=== PATIENT | female | born 1940 | race Caucasian/White ===

== ENCOUNTER 2018-02-15 07:08 | Day surgery (SDC) | payer MEDICARE, OTHER ==
[~2018-02-15 07:08] MED LIST: Acetaminophen TAB* 325 MG PO PRN; Buffered Lidocaine 0.9% SYRIN* 5 ML/SYR SYRINGE INTRADERM ONE
[2018-02-15] MEDS ORDERED: Phenylephrine 2.5% OPTH.SOL* 2 ML BTL ONE (07:43)
[2018-02-15] MEDS ORDERED: Ketorolac 0.5% OPHTH (NF) 0.5 % 5 ML BTL ONE (07:43)
[2018-02-15] MEDS ORDERED: Povidone Iodine 5% OPTH* 30 ML BTL ONE (07:43)
[2018-02-15] MEDS ORDERED: Lidocaine 2% EPI 1:200000 MPF*10-20 ML VIAL ONE (07:43)
[2018-02-15] MEDS ORDERED: Cyclopentolate 1% OPTH.SOL* 2 ML BTL ONE (07:43)
[2018-02-15] MEDS ORDERED: Neomycin/Polymy/Dex OPTH.SUSP* MAXITROL 0.1% 5 ML ONE (07:43)
[2018-02-15] MEDS ORDERED: Lidocaine 1% MPF* 2 ML VIAL ONE (07:43)
[2018-02-15] MEDS ORDERED: acetaZOLAMIDE TAB* 250 MG ONE (07:43)
[2018-02-15] MEDS ORDERED: Proparacaine 0.5% OPHTH.SOL* 15 ML BTL ONE (07:43)
[2018-02-15] MEDS ORDERED: Midazolam* 1 MG/ML 2 ML VIAL (2 MG) ONE ×2 (07:57→09:29)
[2018-02-15] MEDS ORDERED: fentaNYL* 50 MCG/ML 2 ML VIAL (100 MCG VIAL) ONE (09:16)
[2018-02-15 09:56] VITALS: BP 127/71
--- NOTE | 2018-02-15 11:19 | OP ---
OPERATIVE REPORT: DATE OF OPERATION: 02/15/18 DATE OF : 36 SURGEON: Steve Coffey MD PREOPERATIVE DIAGNOSIS: Cataract, right eye. POSTOPERATIVE DIAGNOSIS: Cataract, right eye. OPERATIVE PROCEDURE: Extracapsular cataract extraction with intraocular lens implant, right eye. DESCRIPTION OF PROCEDURE: The patient was brought to the operating room after being given 1/2% Alcai ne with epinephrine drops in the preoperative area. The eye was prepped and draped in the usual ster ile fashion. Sterile drape and eyelid speculum were placed. Again, topical 1/2% Alcaine with epinep hrine was given. A paracentesis incision was made at the 9 o'clock position with the No.75 blade. Cl ear cornea incision 2.2 x 2.2-mm was created at the 12 o'clock position starting at the anterior limb us using the 2.2-mm keratome. The anterior chamber was irrigated with 0.4 mL of 1% non-preservative intracameral lidocaine and filled with DisCoVisc. A capsulorrhexis was completed using the cystotome and the Utrata forceps. Hydrodissection was performed with balanced salt solution. The lens nucleu s was removed with the Phacoemulsification handpiece without incident. Cortex was removed with the ir rigation-aspiration handpiece. The capsular bag was re-inflated using DisCoVisc and an [id number] 23.5 i mplant was inserted with the shooter. The irrigation-aspiration handpiece was used to remove all res idual DisCoVisc. The eye was refilled with balanced salt solution and the wound checked and found to be watertight. Topical Maxitrol drops were given. [id number]/[facility] #: [id number]
== END 2018-02-15 09:57 | disposition home or self-care (01) ==
LOC: OREAST 07:08
PROVIDERS: ATTEND Specialist
DX: H25.13 Age-related nuclear cataract, bilateral (principal); I10 Essential (primary) hypertension; E78.00 Pure hypercholesterolemia, unspecified
CPT/HCPCS: A9270-GY; J2250; J3010; V2632

== ENCOUNTER 2018-02-22 07:44 | Day surgery (SDC) | payer MEDICARE, OTHER ==
[2018-02-22] MEDS ORDERED: acetaZOLAMIDE TAB* 250 MG ONE (09:25)
[2018-02-22] MEDS ORDERED: Cyclopentolate 1% OPTH.SOL* 2 ML BTL ONE (09:25)
[2018-02-22] MEDS ORDERED: Proparacaine 0.5% OPHTH.SOL* 15 ML BTL ONE (09:25)
[2018-02-22] MEDS ORDERED: Povidone Iodine 5% OPTH* 30 ML BTL ONE (09:25)
[2018-02-22] MEDS ORDERED: Ketorolac 0.5% OPHTH (NF) 0.5 % 5 ML BTL ONE (09:25)
[2018-02-22] MEDS ORDERED: Lidocaine 1% MPF* 2 ML VIAL ONE (09:25)
[2018-02-22] MEDS ORDERED: Lidocaine 2% EPI 1:200000 MPF*10-20 ML VIAL ONE (09:25)
[2018-02-22] MEDS ORDERED: Phenylephrine 2.5% OPTH.SOL* 2 ML BTL ONE (09:25)
[2018-02-22] MEDS ORDERED: Neomycin/Polymy/Dex OPTH.SUSP* MAXITROL 0.1% 5 ML ONE (09:25)
[2018-02-22] MEDS ORDERED: Midazolam* 1 MG/ML 2 ML VIAL (2 MG) ONE ×2 (09:38→09:52)
[2018-02-22] MEDS ORDERED: fentaNYL* 50 MCG/ML 2 ML VIAL (100 MCG VIAL) ONE (09:46)
[2018-02-22 10:24] VITALS: BP 122/86
--- NOTE | 2018-02-22 13:31 | OP ---
DATE OF OPERATION: 02/22/18 - [facility] DATE OF : 36 SURGEON: Steve Coffey M.D. PREOPERATIVE DIAGNOSIS: Cataract, left eye. POSTOPERATIVE DIAGNOSIS: Cataract, left eye. OPERATIVE PROCEDURE: Extracapsular cataract extraction with intraocular lens implant, left eye. DESCRIPTION OF PROCEDURE: The patient was brought to the operating room after being given 1/2% Alcaine with epinephrine drops in the preoperative area. The eye was prepped and draped in the usual sterile fashion. Sterile drape and eyelid speculum were placed. Again, topical 1/2% Alcaine with epinephrine was given. A paracentesis incision was made at the 3 o'clock position with the No.75 blade. Clear cornea incision 2.2 x 2.2-mm was created at the 6 o'clock position starting at the anterior limbus using the 2.2-mm keratome. The anterior chamber was irrigated with 0.4 mL of 1% non-preservative intracameral lidocaine and filled with DisCoVisc. A capsulorrhexis was completed using the cystotome and the Utrata forceps. Hydrodissection was performed with balanced salt solution. The lens nucleus was removed with the Phacoemulsification handpiece without incident. Cortex was removed with the irrigation-aspiration handpiece. The capsular bag was re-inflated using DisCoVisc and an [id number] 22 implant was inserted with the shooter. The irrigation-aspiration handpiece was used to remove all residual DisCoVisc. The eye was refilled with balanced salt solution and the wound checked and found to be watertight. Topical Maxitrol drops were given. [id number]/[facility] #: [id number] [facility]
== END 2018-02-22 10:22 | disposition home or self-care (01) ==
LOC: OREAST 07:44
PROVIDERS: ATTEND Specialist
DX: H25.12 Age-related nuclear cataract, left eye (principal); E78.5 Hyperlipidemia, unspecified; I10 Essential (primary) hypertension; M19.90 Unspecified osteoarthritis, unspecified site; R56.9 Unspecified convulsions
CPT/HCPCS: A9270-GY; J2250; J3010; V2632

== ENCOUNTER 2019-04-21 19:58 | Inpatient (IN) | payer MEDICARE ==
--- OUTSIDE RECORDS SUMMARY | 2019-04-21 20:08 | XMS REPORT | Continuity of Care Document ---
:1940 External Reference #:[id number] Author Name Ashley Jones O.D. Address [address] [place] [address] Care Team Providers Name Role Phone Reed Santos M.D. Primary Care Physician Unavailable Payers Date Identification Numbers Payment Provider Subscriber Policy Number: [id number] [facility] Denia Leung PayID: [id number] [address] [place] [id number] Problems Active Problems Provider Date Seizure Onset: Note: 2009 11 Episode Essential hypertension Onset: Hypercholesterolemia Onset: Bilateral hearing loss Onset: Presence of intraocular lens Steve Coffey M.D. Onset: 02/23/2018 Nuclear senile cataract Steve Coffey M.D. 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 Solution Simvastatin Take 1 Tablet By Unknown 20mg Tablets Mouth AT Bedtime Lisinopril Take 1 Tablet By Unknown 10mg Tablets Mouth Every Day Levetiracetam Excel, Michael, 1000mg M.DAdeline Tablets Multi Vitamin Daily Unknown Tablets History Medications Ciprofloxacin HCL instill one drop 10units Steve Mcfarland 02/10/2018 - 0.3% in the right eye Denzel Coffey 03/08/2018 Solution three times a day, start the day before surgery Ketorolac Tromethamine use one drop in 10ml Steve Mcfarland 02/10/2018 - 0.5% the right eye Denzel Coffey 04/03/2019 Solution three times a day, start the day before surgery Prednisolone Acetate 1 drops right eye 15units Steve Mcfarland 02/10/2018 - 1% three times a day. Denzel Coffey 04/03/2019 Suspension taper as directed Procedures Date Code Description Status 02/22/2018 13518 Extracapsular Cataract Extraction W/Intraocular Lens Completed 02/15/2018 67170 Extracapsular Cataract Extraction W/Intraocular Lens Completed 02/10/2018 67359 Ophthalmic Biometry Completed 01/31/2018 05604 New Patient Comprehensive Exam Completed Encounters Type Date Location Provider Dx Diagnosis Office Visit 02/10/2018 Steve Coffey, Steve Coffey, H25.11 Age- related 10:45a , leo Mahoney nuclear cataract, right eye H25.12 Age-related nuclear cataract, left eye Plan of Treatment 04/04/2019 - Ashley Jones O.D.Z96.1 Presence of intraocular lensComments: Smoking can increase the risk of developing or worsening any eye related disease , as well as affect your overall health. If you are a smoker, we strongly recommend that you quit.If you are not a smoker, we strongly recommend that you do not start. The artificial lens implants in both eyes appear to be stable at this time.Follow up:2 YEAR You can expect to have your eyes dilated at your next visit. If Dr. Jones orders any additional testing, it may require extra time. We recommend that you bring sunglasses, as dilation drops often make you light sensitive until they wear off. We always recommend you bring someone to drive you home if you are uncomfortable driving with your eyes dilated. If you have any questions before your next visit, feel free to call our office at [phone].
[2019-04-21 22:12] LABS: ABS Basophils 0.1 10^3/ul (0-0.2); ABS Lymphocytes 0.7 10^3/ul (1.0-4.8); ABS Monocytes 0.9 10^3/ul (0-0.8); ABS Neutrophils 11.3 10^3/ul (1.5-7.7); Eosinophil % 0.1 %; Hematocrit 41 % (35-47); Hemoglobin 13.6 g/dL (12.0-16.0); Lymphocyte % 5.8 %; Mean Corpuscular HGB Conc 33 g/dL (31-36); Mean Corpuscular Hemoglobin 29 pg (27-31); Mean Corpuscular Volume 87 fL (80-97); Mean Platelet Volume 8.7 fL (7.4-10.4); Platelet Count 235 10^3/uL (150-450); Red Blood Count 4.71 10^6 /uL (3.70-4.87); Red Cell Distribution Width 13 % (10-15)
[2019-04-21 22:21] LABS: Activated Partial Thrombo Time 34.5 seconds (26.0-38.0); INR 1.03 (0.82-1.09)
--- NOTE | 2019-04-21 22:22 | ED ---
Lower Extremity - HPI Summary HPI Summary: 79-year-old female presents the left hip pain s/p fall today. She states that she ended up tripping over her flip flops and fell onto her left hip. She states that she was walking for an hour afterwards and hasn't place weight on the area. She denies any numbness distally. Denies chest pain shortness breath. All was mechanical fall. She did not hit her head. Denies any other symptoms. Has history of seizures and high blood pressure. Patient states she is in no pain until place weight on the area. - History of Current Complaint Chief Complaint: EDExtremityLower Stated Complaint: LEFT LEG PAIN PER PT Time Seen by Provider: 04/21/19 21:09 Pain Intensity: 5 - Allergies/Home Medications Allergies/Adverse Reactions: Allergies Allergy/AdvReac Type Severity Reaction Status Date / Time No Known Allergies Allergy Verified 02/22/18 07:57 PMH/Surg Hx/FS Hx/Imm Hx Endocrine/Hematology History: Denies: Hx Anticoagulant Therapy Cardiovascular History: Reports: Hx Hypertension - ON MEDS, Other Cardiovascular Problems/Disorders - HIGH CHOLESTEROL Musculoskeletal History: Reports: Hx Arthritis - FINGERS HANDS Sensory History: Reports: Hx Cataracts - BOTH, Hx Contacts or Glasses - GLASSES , Hx Hearing Aid - LEFT EAR Opthamlomology History: Reports: Hx Cataracts - BOTH, Hx Contacts or Glasses - GLASSES Neurological History: Reports: Hx Seizures - LAST SEIZURE 2009 - Cancer History Hx Chemotherapy: No - Surgical History Surgery Procedure, Year, and Place: CRANIOTOMY 2009 [facility] Hx Anesthesia Reactions: No Infectious Disease History: No Infectious Disease History: Denies: Traveled Outside the [place] in Last 30 Days - Family History Known Family History: Positive: Non-Contributory - Social History Alcohol Use: None Substance Use Type: Reports: None Smoking Status (MU): Never Smoked Tobacco Review of Systems Negative: Fever Negative: Chest Pain Negative: Shortness Of Breath Positive: Myalgia - left hip pain All Other Systems Reviewed And Are Negative: Yes Physical Exam Triage Information Reviewed: Yes Vital Signs On Initial Exam: Initial Vitals Temp Pulse Resp BP Pulse Ox 98.3 F 121 18 135/97 95 04/21/19 20:00 04/21/19 20:00 04/21/19 20:00 04/21/19 20:00 04/21/19 20:00 Vital Signs Reviewed: Yes Appearance: Positive: Well-Appearing Skin: Positive: Warm, Dry Head/Face: Positive: Normal Head/Face Inspection Eyes: Positive: Normal, Conjunctiva Clear ENT: Positive: Pharynx normal Respiratory/Lung Sounds: Positive: Clear to Auscultation, Breath Sounds Present Cardiovascular: Positive: Normal, RRR Musculoskeletal: Positive: Limited @ - left hip, Other - good pulses, sensation grossly intact Neurological: Positive: Sensory/Motor Intact, Alert, Oriented to Person Place, Time Psychiatric: Positive: Normal Diagnostics - Vital Signs Vital Signs Temp Pulse Resp BP Pulse Ox 04/21/19 21:10 115 162/98 94 04/21/19 21:08 111 04/21/19 21:07 115 04/21/19 20:00 98.3 F 121 18 135/97 95 - Laboratory Lab Results: Lab Results 04/21/19 04/21/19 Range/Units 22:05 22:05 WBC 13.0 H (3.5-10.8) 10^3/uL RBC 4.71 (3.70-4.87) 10^6 /uL Hgb 13.6 (12.0-16.0) g/dL Hct 41 (35-47) % MCV 87 (80-97) fL MCH 29 (27-31) pg MCHC 33 (31-36) g/dL RDW 13 (10-15) % Plt Count 235 (150-450) 10^3/uL MPV 8.7 (7.4-10.4) fL Neut % (Auto) 86.8 % Lymph % (Auto) 5.8 % [place] % (Auto) 6.8 % Eos % (Auto) 0.1 % Baso % (Auto) 0.5 % Absolute Neuts (auto) 11.3 H (1.5-7.7) 10^3/ul Absolute Lymphs (auto) 0.7 L (1.0-4.8) 10^3/ul Absolute Monos (auto) 0.9 H (0-0.8) 10^3/ul Absolute Eos (auto) 0.0 (0-0.6) 10^3/ul Absolute Basos (auto) 0.1 (0-0.2) 10^3/ul Absolute Nucleated RBC 0.0 10^3/ul Nucleated RBC % 0.0 INR (Anticoag Therapy) 1.03 (0.82-1.09) APTT 34.5 (26.0-38.0) seconds Result Diagrams: 04/21/19 22:05 04/21/19 22:05 Lab Statement: Any lab studies that have been ordered have been reviewed, and results considered in the medical decision making process. - Radiology hip Radiology Interpretation Completed By: ED Physician Summary of Radiographic Findings: possible femoral neck fracture femur Radiology Interpretation Completed By: ED Physician Summary of Radiographic Findings: no fracture - CT hip CT Interpretation Completed By: Radiologist Summary of CT Findings: IMPRESSION: Impacted left subcapital femoral neck fracture with mild soft tissue swelling. On sagittal images, there is cortical break in the inferior sacrum without any. associated soft tissue swelling. Likely old. - EKG No standard instances Cardiac Rate: Tachycardia EKG Rhythm: Sinus Tachycardia Summary of EKG Findings: sinus tachycardic Re-Evaluation - Re-Evaluation First Eval Re-Evaluation Time: 23:37 Comment: still no pain Lower Extremity Course/Dx - Course Course Of Treatment: 79-year-old female presents the left hip pain s/p fall today. She states that she ended up tripping over her flip flops and fell onto her left hip. She states that she was walking for an hour afterwards and hasn' t place weight on the area. She denies any numbness distally. Denies chest pain shortness breath. All was mechanical fall. She did not hit her head. Denies any other symptoms. Has history of seizures and high blood pressure. Patient states she is in no pain until places weight on the area. On exam tachycardic. EKG shows sinus tachycardia. Patient does have limited range of motion of the left hip. Unable to lift the hip on own but passive range of motion intact. Neurovascular intact. X-ray shows possible femoral neck fracture. spoke with dr morales who says to admit to hospitalist service for possible surgery tomorrow. dr mark agrees to admit. - Diagnoses Differential Diagnosis/HQI/PQRI: Positive: Fracture (Closed), Sprain, Strain Provider Diagnoses: Fracture of femoral neck, left, Fall Discharge - Sign-Out/Discharge Documenting (check all that apply): Patient Departure - Discharge Plan Condition: Stable Disposition: ADMITTED TO [facility] - Billing Disposition and Condition Condition: STABLE Disposition: Admitted to [facility]
[2019-04-21 22:28] LABS: Albumin 4.5 g/dL (3.2-5.2); Albumin/Globulin Ratio 1.5 (1-3); BUN/Creatinine Ratio 14.7 (8-20); Calcium 9.9 mg/dL (8.6-10.3); EGFR African American 54.3 (>60); EGFR Non-African American 44.8 (>60); Globulin 3.1 g/dL (2-4); Potassium 3.7 mmol/L (3.5-5.0); Total Bilirubin 0.5 mg/dL (0.2-1.0); Total Protein 7.6 g/dL (6.4-8.9)
[2019-04-21] MEDS ORDERED: NS 0.9% 1000 ML** 1,000 ML IV ONE (23:30)
[2019-04-21] MEDS ORDERED: Ondansetron INJ* 2 MG/ML VIAL IV PRN (23:40)
[2019-04-22] MEDS: traMADol TAB* 50 MG PO PRN (00:49)
[2019-04-22] MEDS ORDERED: Morphine INJ* 2 MG/ML 1 ML SYRINGE (TWO MG - NEW SYRINGE VERSION) IV PRN ×2 (01:45→02:19)
[2019-04-22] MEDS ORDERED: Morphine INJ* 2 MG/ML 1 ML SYRINGE (TWO MG - NEW SYRINGE VERSION) ONE ×3 (01:58→03:03)
--- NOTE | 2019-04-22 02:08 | HP ---
HISTORY AND PHYSICAL: DATE OF ADMISSION: 04/21/19 PRIMARY CARE PROVIDER: Dr. Santos. GAS METER CHECKER: Alex Leung, the patient's daughter. CODE STATUS: DNR. SOURCE OF INFORMATION: HPI is obtained from the patient, who is an excellent historian. CHIEF COMPLAINT: Fall and leg pain. HISTORY OF PRESENT ILLNESS: This is an 79-year-old female with a past medical history of hypertension, hyperlipidemia, and arthritis, history of seizure disorder after an aneursym clipping, on antiepileptic drugs, last seizure was in 2009, who reports to the ER tonight after a trip and fall with left leg pain. The patient reports she was cleaning out the cat litter box in her flip flops and tripped on her own left foot, fell onto her left hip directly. She had immediate pain in the area, and when she tried to stand, she was unable to bear weight, thus she called EMS. In the emergency room, her blood pressure was 135/97, heart rate was 121, temperature 98.3, 95% on room air with respiratory rate of 15. Labs were done, which show mild leukocytosis to 13, creatinine of 1.16, glucose is mildly elevated at 139. EKG was done showing sinus tachycardia with low voltage. Hip radiograph, femur radiograph, and a pelvic CT were done, which showed an impacted left subcapital femoral neck fracture. Orthopedic service was called, who requested that the patient be admitted for possible operative repair on . PAST MEDICAL HISTORY: Hypertension, hyperlipidemia, arthritis, history of seizure disorder in setting of aneursym. PAST SURGICAL HISTORY: Cranial aneurysm clipping in [address] [facility]. MEDICATIONS: 1. Keppra 1000 mg p.o. b.i.d. 2. Multivitamin 1 tab p.o. daily. 3. Lisinopril 10 mg p.o. q.a.m. 4. Simvastatin 20 mg p.o. q.h.s. ALLERGIES: None. FAMILY HISTORY: Mother with coronary artery disease and father with coronary artery disease. 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 Tobacco: She is a lifetime nonsmoker. Alcohol: She is a distant social drinker. Illicits: Never. REVIEW OF SYSTEMS: Constitutional: Negative for fevers, chills. HEENT: Negative for vision changes, headaches, sore throat. Cardiovascular: Negative for chest pain, palpitations, or orthopnea. Respiratory: Negative for shortness of breath, cough, or chest pain. GI: Negative for nausea, vomiting, diarrhea, abdominal pain. : Negative for dysuria or hematuria. Musculoskeletal: Negative for myalgias, arthralgias, or weakness. Positive for left hip pain. Skin: Negative for rashes or lesions. Neurologic: Negative for focal weakness or numbness. Psychiatric: Negative for depression, positive for anxiety. Heme: Negative for bruising, bleeding, or lymphadenopathy. PHYSICAL EXAMINATION GENERAL APPEARANCE: She is a pleasant, well-appearing woman looking younger than stated age, sitting in stretcher, quite anxious. VITAL SIGNS: At time of physical exam, blood pressure 158/108, heart rate 111, respiratory rate 15, oxygen saturation 98% on room air. HEENT: Pupils are equal and reactive. Extraocular muscles are intact. Sclerae are anicteric. Mouth: She has moist mucous membranes. NECK: Supple with no supraclavicular or cervical lymphadenopathy. CARDIAC: She is S1, S2. No murmurs, rubs, or gallops. Tachycardic. RESPIRATORY: Lungs are clear to auscultation bilaterally. ABDOMEN: Belly is soft, nontender, nondistended. NEUROLOGIC: Cranial nerves II through XII are intact. No focal neurologic deficits. A and O x3. EXTREMITIES: No edema. Left leg with sensation intact, 2+ pulses. DIAGNOSTIC STUDIES/LAB DATA: White blood cell count 13, hemoglobin 13, hematocrit 41, platelets 235. Chemistry: Sodium 137, potassium 3.7, chloride 102, carbon dioxide 23, anion gap 12. BUN 17, creatinine 1.16, glucose 139, lactic acid 1.3, total bili is 0.5, AST 28, ALT 20, alk phos 62. Hip, pelvis x-ray and femur x-ray are unreported at time of dictation. A pelvis CT is read as a left subcapital femoral neck fracture, impacted with soft tissue swelling. EKG shows sinus tachycardia with low voltage. Imaging, labs, and EKG reviewed by myself. ASSESSMENT AND PLAN: This is an 79-year-old female with past medical history of hypertension, hyperlipidemia, arthritis, history of aneurysm clipping and subsequent seizure disorder on antiepileptic drugs, who presents to the ER with left femoral neck fracture. She will be admitted to the medicine service with Ortho consulting. 1. Left hip fracture. Admit per Ortho, anticoagulation per Ortho, pain control with Tylenol, tramadol, and morphine as needed. The patient will be placed n.p.o. at midnight. Risk Stratification: At baseline patient can easily complete 4 Mets of activity , RCRI score of 0 connoting a 3.9% risk of cardiac event. Risk and benefits are conveyed with patient and she would elect to proceed with surgery as she is deemed a low risk patient for a moderate risk procedure. No preoperative changes to medications. 2. Sinus tachycardia. Most likely underlying source is significant anxiety amnd pain as the patient reports that she does not want to be admitted to the hospital . We will offer gentle hydration and follow on telemetry, she has no concerning underlying cardiac history. 3. Hypertension. Continue home lisinopril. 4. Hyperlipidemia. Continue home statin. 5. History of seizure disorder. We will continue on her home Keppra. 6. DVT prophylaxis. As per Ortho and we will hold on prophylaxis at this time given possible to OR within the next 24 hours. 7. Code status. DNR. 8. FEN: NPO. 9. Disposition. Stable for admission to the surgical short-stay unit with PT and OT following and Orthopedics following. TIME SPENT: Thirty five minutes was spent in the planning this admission with over half of that spent directly at the bedside with the patient providing direct patient care. Plan of care was discussed with the patient and her son, who agreed to admission. They had no further questions. [id number]/[facility] #: [id number] [place]
[2019-04-22] MEDS: NS 0.9% 1000 ML** 1,000 ML IV SCH ×2 (03:08→12:22)
[2019-04-22 03:09] LABS: Urine Appearance Cloudy; Urine Bacteria 3+ (Absent); Urine Bilirubin Negative (Negative); Urine Blood 1+ (Negative); Urine Color Yellow; Urine Glucose Negative (Negative); Urine Ketones Negative (Negative); Urine Nitrite Positive (Negative); Urine Protein Negative (Negative); Urine Red Blood Cell Trace(0-2/hpf) (Absent); Urine Specific Gravity 1.012 (1.010-1.030); Urine Urobilinogen Negative (Negative); Urine White Blood Cell 3+(>20/hpf) (Absent)
[2019-04-22] MEDS: Melatonin 3 MG TAB PO SCH ×2 (03:33→22:00)
[2019-04-22] MEDS: levETIRAcetam TAB* 500 MG PO SCH ×2 (08:10→21:59)
--- NOTE | 2019-04-22 08:23 | PN ---
Progress Note - Progress Note Date of Service: 04/22/19 Note: Pt seen and examined. Full note dictated. 79 yo independent female s/p GLF with L hip min displaced femoral neck fracture. Optimized per medicine. Called daughter, Anuel, and left a message. Plan for L hip cannulated screws this AM. OR aware. NPO.
--- NOTE | 2019-04-22 08:46 | PN ---
Subjective Date of Service: 04/22/19 Interval History: Ms. Leung is feeling well today. She feels generally comfortable. Has used morphine and ice and left hip pain is currently 4/10. She does not feel like she needs more medication at this time. Denies CP, SOB, N/V/D, headache, dizziness. No concerns from nursing. Family History: Unchanged from Admission Social History: Unchanged from Admission Past Medical History: Unchanged from Admission Objective Active Medications: Acetaminophen (Tylenol Tab*) 650 mg PO Q4H PRN FEVER/PAIN Atorvastatin Calcium (Lipitor*) 10 mg PO BEDTIME ANJALI Sodium Chloride (Ns 0.9% 1000 Ml) 1,000 mls @ 100 mls/hr IV PER RATE ANJALI Levetiracetam (Keppra Tab*) 1,000 mg PO BID ANJALI Melatonin (Melatonin) 3 mg PO BEDTIME ANJALI Morphine Sulfate (Morphine Inj (Syringe))*) 2 mg IV Q2H PRN PAIN Morphine Sulfate (Morphine Inj (Syringe))*) 2 mg IV ONCE PRN PAIN Ondansetron HCl (Zofran Inj*) 4 mg IV Q6H PRN NAUSEA Tramadol HCl (Ultram*) 50 mg PO Q8H PRN PAIN Vital Signs - 8 hr 04/22/19 04/22/19 04/22/19 00:49 00:57 02:05 Temperature 98 F Pulse Rate 110 Respiratory 18 22 16 Rate Blood Pressure 169/93 (mmHg) O2 Sat by Pulse 99 Oximetry 04/22/19 04/22/19 04/22/19 03:00 03:08 03:23 Temperature 99.3 F Pulse Rate 107 Respiratory 16 18 16 Rate Blood Pressure 147/76 (mmHg) O2 Sat by Pulse 94 Oximetry 04/22/19 04/22/19 07:23 07:35 Temperature 99.1 F Pulse Rate 106 Respiratory 16 16 Rate Blood Pressure 147/70 (mmHg) O2 Sat by Pulse 91 Oximetry Oxygen Devices in Use Now: None Appearance: Elderly female laying in bed in NAD Eyes: No Scleral Icterus Ears/Nose/Mouth/Throat: Mucous Membranes Moist Neck: NL Appearance and Movements; NL JVP, Trachea Midline Respiratory: Symmetrical Chest Expansion and Respiratory Effort, Clear to Auscultation Cardiovascular: NL Sounds; No Murmurs; No JVD, RRR Abdominal: NL Sounds; No Tenderness; No Distention Extremities: No Edema Skin: No Rash or Ulcers Neurological: Alert and Oriented x 3, NL Sensation Lines/Tubes/Other Access: Clean, Dry and Intact Peripheral IV Result Diagrams: 04/21/19 22:05 04/21/19 22:05 Assess/Plan/Problems-Billing Assessment: Ms. 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 - Patient Problems (1) Fracture of femoral neck, left Code(s): S72.002A - FRACTURE OF UNSP PART OF NECK OF LEFT FEMUR, INIT Comment : - Secondary to mechanical fall - Management per Ortho; plan for surgery today - Araujo in place - Continue morphine, Tramadol (2) LILI (acute kidney injury) Code(s): N17.9 - ACUTE KIDNEY FAILURE, UNSPECIFIED Comment: - Creatinine elevated on admission - Most recent labs on file are from 2010, so baseline is not known and this could simply represent CKD or secondary to hypovolemia - Hold lisinopril - Continue IVF (3) Hypertension Code(s): I10 - ESSENTIAL (PRIMARY) HYPERTENSION Comment: - Slightly hypertensive, SBP 140s - Hold lisinopril d/t LILI - Will reassess tomorrow, but may resume lisinopril or change to another agent such as a CCB (4) Hyperlipidemia Code(s): E78.5 - HYPERLIPIDEMIA, UNSPECIFIED Comment: - Continue atorvastatin (5) Seizure disorder Code(s): G40.909 - EPILEPSY, UNSP, NOT INTRACTABLE, WITHOUT STATUS EPILEPTICUS Comment: - Secondary to aneurysm, s/p clipping in 2009 - Continue Keppra (6) DVT prophylaxis Code(s): Z29.9 - ENCOUNTER FOR PROPHYLACTIC MEASURES, UNSPECIFIED Comment: - SCDs (7) DNR (do not resuscitate) Comment: Status and Disposition: Inpatient. Anticipate need for rehab. Attending: Jailene Brandon
[2019-04-22] MEDS ORDERED: Famotidine IV* 10 MG/ML 2 ML (20 mg) IV SLOW PU ONE (08:56)
[2019-04-22] MEDS ORDERED: Lactated Ringers 1000 ML Bag* 1,000 ML IV ONE (08:56)
[2019-04-22] MEDS ORDERED: Lisinopril TAB* 10 MG PO SCH (09:00)
--- NOTE | 2019-04-22 10:07 | CONS ---
CC: PCP, Reed Santos MD * CONSULTATION REPORT: DATE OF CONSULT: 04/21/19 CHIEF COMPLAINT: Left hip pain. HISTORY OF PRESENT ILLNESS: Briefly, Ms. Leung is an 79-year-old female with a past medical history of hypertension, hyperlipidemia who presents after a ground level fall last night, she tripped; she states that she was cleaning out her cat litter box and flip flops and slipped and fell on to her hip. She had immediate pain. She was actually able to walk a little bit before she noticed she had a lot of pain and went to the ER, was diagnosed with a nondisplaced valgus impacted femoral neck fracture. She was worked up by Medicine and is n.p.o. waiting for surgery. PAST MEDICAL HISTORY: 1. Hypertension. 2. Hyperlipidemia. 3. Arthritis. 4. History of seizure. PAST SURGICAL HISTORY: Two craniotomies. No issues with anesthesia. No history of blood clots. MEDICATIONS: 1. Keppra. 2. Multivitamin. 3. Lisinopril. 4. Simvastatin. ALLERGIES: None. FAMILY HISTORY: Coronary artery disease. SOCIAL HISTORY: She lives next door to her children. 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 She lives at home. She does not use a cane or a walker. She lost her several years ago and is a . She is a nonsmoker, but used to have an alcohol addiction problem. REVIEW OF SYSTEMS: A 14-point review of systems reviewed with the patient, significant only for the above complaint, otherwise negative for fevers, chills , chest pain, shortness of breath. No seizure since 2009. Otherwise, remainder of systems is negative. PHYSICAL EXAM: She is in no acute distress. She is well developed, well nourished. She is alert and oriented x3. She looks younger than her stated age. She is lying comfortably in bed reading a book. Vitals: Temp of 99.1, heart rate 106, respiratory rate 16, O2 saturation 91%, blood pressure 147/70. EOMI. Chest: Clear to auscultation. Heart: Regular rate and rhythm. Abdomen : Soft, nontender. Examination of the left hip demonstrates skin is intact. No erythema or warmth. Her calf is soft, nontender. She is sensate to light touch about the first dorsal web space, medial, lateral, dorsal, and plantar foot. She has brisk cap refill and 2+ PT pulse. She is able to dorsiflex and plantar flex her ankles, flex and extend her toes. DIAGNOSTIC STUDIES: X-rays were reviewed that demonstrate a valgus impacted femoral neck fracture. Femur films were also reviewed that demonstrated no fracture distally. ASSESSMENT AND PLAN: This is an 79-year-old female who is very active, lives at home without any real assistive devices. She presents with a ground-level fall that happened late last night. We will plan for left hip cannulated screws. She has been optimized by medicine team. I discussed the case with anesthesiologist as well as the medicine team. Risks and benefits were discussed at length to include but not limited to bleeding, infection, damage to nerves, vessels, and surrounding structures, wound nonhealing, persistent pain, need for surgery, scarring, stiffness, incomplete relief of symptoms, risk of anesthesia, risk of DVT. She will be on DVT prophylaxis. The patient did Lovenox shots for her and would prefer not to do that. So, we will discuss about different options. We will plan to take the patient to the OR today and have her up and working with therapy later today if possible. [id number]/[facility] #: [id number] [place]
[2019-04-22] MEDS ORDERED: Ropivacaine 0.2% * 2 MG/ML VIAL ONE (10:26)
[2019-04-22] MEDS ORDERED: Naloxone* 0.4 MG/ML 1 ML VIAL IV PRN (11:22)
[2019-04-22] MEDS ORDERED: Acetaminophen TAB* 325 MG PO PRN (11:22)
[2019-04-22] MEDS ORDERED: HYDROmorphone INJ1* 1 MG/ML SYRINGE IV PRN (11:22)
[2019-04-22] MEDS ORDERED: Gabapentin CAP(*) 100 MG PO ONE (11:24)
[2019-04-22] MEDS ORDERED: Acetaminophen TAB* 325 MG ONE (11:42)
[2019-04-22] MEDS ORDERED: Gabapentin CAP(*) 100 MG ONE (11:43)
--- NOTE | 2019-04-22 12:26 | OP ---
DATE OF OPERATION: 04/22/19 - ROOM #333 DATE OF : 36 SURGEON: Jim Heck MD. SUCTION OPERATOR: None available. ANESTHESIOLOGIST: Dr. Sanford. ANESTHESIA: General. PRE-OP DIAGNOSIS: Minimally displaced femoral neck fracture. POST-OP DIAGNOSIS: Minimally displaced femoral neck fracture. OPERATIVE PROCEDURE: Left hip cannulated screws. COMPLICATIONS: None. ESTIMATED BLOOD LOSS: About 100. DISPOSITION: Stable. INDICATIONS: Denia Leung is an 79-year-old female who sustained a ground level fall last evening. She was brought to the ER and diagnosed with a hip fracture. She underwent a medical risk optimization, was n.p.o. for surgery today. The risks and benefits of surgery were discussed at length including, but not limited to bleeding; infection; damage to nerves, vessels, surrounding structures; wound nonhealing; persistent pain; need for further surgery; scarring; stiffness; incomplete relief of symptoms; risks of anesthesia; risk of DVT. She elected to proceed with surgical treatment. DESCRIPTION OF PROCEDURE: The patient was greeted in the preoperative area by the attending surgeon. Correct extremity was marked and consent was confirmed. The patient was brought back to the operating suite and was placed in the supine position on the operating table She then underwent general anesthesia and LMA intubation, after which she was moved to the fracture table in appropriate position. The right leg was placed in the well leg hpelps. A well- padded perineal post was placed for gentle traction. The affected hip was placed in traction device. X-rays were obtained that demonstrated the hip fracture. I gently internally reduced it to gently reduce this to an acceptable alignment, after which the left hip was prepped and draped in the usual sterile fashion beginning with chlorhexidine soap, scrub, and alcohol wipe and a final prep of ChloraPrep. After appropriate surgical pause indicating side, site, procedure, and administration of antibiotics, a 10-blade was used to make an incision about the lateral aspect of the hip to the soft tissues. The IT band was exposed and incised. The soft tissues were carefully dissected off the femoral shaft. A guidewire was placed and began first with the inferior pin to be more center-to - center. Once this was placed in, I took out AP and lateral views. Two more proximal pins, one more anterior and one more posterior, were then placed to capture the fracture fragment. We began inferiorly. The lateral wall was drilled and the first screw was placed. It had some compression effect. The superior screw was then placed and then the inferior screws. These were placed with excellent purchase. Final images were obtained to confirm that there was no evidence of penetration in the joint and the fracture was fully aligned. Traction was used and the hip was taken through range of motion and there was no evidence of disruption of the fracture. This was found to be stabilized. The wound was copiously irrigated with sterile saline. The wounds were closed in layers with 0- Vicryl for the fascia, soft tissue with 3-0 Monocryl, and the skin with robbie. The wound was injected with 20 cc of 0.2% ropivacaine. Sterile dressings were applied. She was awoken from anesthesia and transferred to PACU in stable condition. POSTOPERATIVE PLAN: She will be weightbearing as tolerated. Start PT and OT hopefully today. She will receive 24 hours of postoperative antibiotics. DVT prophylaxis with Lovenox, although the patient would like to transition to an oral agent. We will continue following her in the hospital. Dressing change postop day #2 and she can be discharged to SNF or home depending on how she does with therapy. I will see the patient back in the hospital. [id number]/[facility] #: [id number] [place]
[2019-04-22] MEDS ORDERED: oxyCODONE TAB* 5 MG TAB PO PRN ×2 (13:34)
[2019-04-22] MEDS: ceFAZolin 1 GM* X 3 DOSES POST-OP Q8H (AddVan) IVPB SCH ×2 (17:55)
[2019-04-22] MEDS: Atorvastatin* 10 MG TAB PO SCH (21:59)
[2019-04-22] MEDS: Acetaminophen TAB* 325 MG PO PRN (22:05)
[2019-04-23] MEDS: ceFAZolin 1 GM* X 3 DOSES POST-OP Q8H (AddVan) IVPB SCH ×4 (02:39→09:45)
[2019-04-23 05:04] LABS: ABS Basophils 0.1 10^3/ul (0-0.2); ABS Eosinophils 0.4 10^3/ul (0-0.6); ABS Lymphocytes 1.9 10^3/ul (1.0-4.8); Hematocrit 33 % (35-47); Hemoglobin 11.1 g/dL (12.0-16.0); Lymphocyte % 18.2 %; Mean Corpuscular HGB Conc 34 g/dL (31-36); Mean Corpuscular Hemoglobin 30 pg (27-31); Mean Corpuscular Volume 88 fL (80-97); Nucleated Red Blood Cells % 0.1; Platelet Count 180 10^3/uL (150-450); Red Blood Count 3.73 10^6 /uL (3.70-4.87); Red Cell Distribution Width 13 % (10-15); White Blood Count 10.4 10^3/uL (3.5-10.8)
[2019-04-23 05:21] LABS: BUN/Creatinine Ratio 19.3 (8-20); Calcium 8.2 mg/dL (8.6-10.3); EGFR African American 74.6 (>60); EGFR Non-African American 61.7 (>60); Potassium 4.1 mmol/L (3.5-5.0)
[2019-04-23] MEDS: traMADol TAB* 50 MG PO PRN ×2 (05:41→13:47)
[2019-04-23] MEDS: levETIRAcetam TAB* 500 MG PO SCH ×2 (08:29→20:52)
[2019-04-23] MEDS ORDERED: Magnesium Hydroxide LIQ* 30 ML UDC PO PRN (08:38)
[2019-04-23] MEDS ORDERED: Senna TAB PO PRN (08:38)
--- NOTE | 2019-04-23 09:10 | PN ---
Progress Note - Progress Note Date of Service: 04/23/19 SOAP: Subjective: []Pt seen and examined at bedside today. She is feeling very well, pain is controlled. Denies CP, SOB, LLE pain. No complaints. Objective: []General: LLE: Dressing CDI. Thigh is soft. DF/PF intact, DP2+, sensation intact to light touch distally BL LE calves supple and nontender without erythema, edema or palpable cords Assessment: []POD 1 sp L hip cannulated screws Plan: []WBAT PT/OT DVT prophy: Eliquis 2.5 mg po BID. Initially lovenox as ordered, patient would prefer not to use this medication. Discussed with Dr Heck, changed to eliquis , no doses of lovenox were given. Change dressing tomorrow. PMRU vs home tomorrow Vital Signs Temp 98.7 F 04/23/19 07:34 Pulse 99 04/23/19 07:34 Resp 16 04/23/19 07:41 BP 147/67 04/23/19 07:34 Pulse Ox 94 04/23/19 07:34 Intake & Output 04/22/19 04/23/19 04/23/19 18:59 06:59 18:59 Intake Total 20094 Output Total 950 750 Balance 1060 1154 Intake: IV Fluids 1800 1404 LR 1800 NS (0.9%) 1404 IVPB 100 ABX - CEFAZOLIN 100 Oral 210 400 Output: Araujo 950 750 Other: # Bowel Movements 0 Laboratory Last Values WBC 10.4 10^3/uL (3.5-10.8) 04/23/19 04:51 RBC 3.73 10^6 /uL (3.70-4.87) 04/23/19 04:51 Hgb 11.1 g/dL (12.0-16.0) L 04/23/19 04:51 Hct 33 % (35-47) L 04/23/19 04:51 MCV 88 fL (80-97) 04/23/19 04:51 MCH 30 pg (27-31) 04/23/19 04:51 MCHC 34 g/dL (31-36) 04/23/19 04:51 RDW 13 % (10-15) 04/23/19 04:51 Plt Count 180 10^3/uL (150-450) 04/23/19 04:51 MPV 9.0 fL (7.4-10.4) 04/23/19 04:51 Neut % (Auto) 67.5 % 04/23/19 04:51 Lymph % (Auto) 18.2 % 04/23/19 04:51 [place] % (Auto) 9.6 % 04/23/19 04:51 Eos % (Auto) 4.0 % 04/23/19 04:51 Baso % (Auto) 0.7 % 04/23/19 04:51 Absolute Neuts (auto) 7.0 10^3/ul (1.5-7.7) 04/23/19 04:51 Absolute Lymphs (auto) 1.9 10^3/ul (1.0-4.8) 04/23/19 04:51 Absolute Monos (auto) 1.0 10^3/ul (0-0.8) H 04/23/19 04:51 Absolute Eos (auto) 0.4 10^3/ul (0-0.6) 04/23/19 04:51 Absolute Basos (auto) 0.1 10^3/ul (0-0.2) 04/23/19 04:51 Absolute Nucleated RBC 0.0 10^3/ul 04/23/19 04:51 Nucleated RBC % 0.1 04/23/19 04:51 INR (Anticoag Therapy) 1.03 (0.82-1.09) 04/21/19 22:05 APTT 34.5 seconds (26.0-38.0) 04/21/19 22:05 Sodium 140 mmol/L (135-145) 04/23/19 04:51 Potassium 4.1 mmol/L (3.5-5.0) 04/23/19 04:51 Chloride 112 mmol/L (101-111) H 04/23/19 04:51 Carbon Dioxide 22 mmol/L (22-32) 04/23/19 04:51 Anion Gap 6 mmol/L (2-11) 04/23/19 04:51 BUN 17 mg/dL (6-24) 04/23/19 04:51 Creatinine 0.88 mg/dL (0.51-0.95) 04/23/19 04:51 Est GFR ( Amer) 74.6 (>60) 04/23/19 04:51 Est GFR (Non-Af Amer) 61.7 (>60) 04/23/19 04:51 BUN/Creatinine Ratio 19.3 (8-20) 04/23/19 04:51 Glucose 109 mg/dL (70-100) H 04/23/19 04:51 Lactic Acid 1.3 mmol/L (0.5-2.0) 04/21/19 22:05 Calcium 8.2 mg/dL (8.6-10.3) L 04/23/19 04:51 Total Bilirubin 0.50 mg/dL (0.2-1.0) 04/21/19 22:05 AST 28 U/L (13-39) 04/21/19 22:05 ALT 20 U/L (7-52) 04/21/19 22:05 Alkaline Phosphatase 62 U/L (34-104) 04/21/19 22:05 Total Protein 7.6 g/dL (6.4-8.9) 04/21/19 22:05 Albumin 4.5 g/dL (3.2-5.2) 04/21/19 22:05 Globulin 3.1 g/dL (2-4) 04/21/19 22:05 Albumin/Globulin Ratio 1.5 (1-3) 04/21/19 22:05 Urine Color Yellow 04/22/19 02:40 Urine Appearance Cloudy 04/22/19 02:40 Urine pH 6.0 (5-9) 04/22/19 02:40 Ur Specific [place] 1.012 (1.010-1.030) 04/22/19 02:40 Urine Protein Negative (Negative) 04/22/19 02:40 Urine Ketones Negative (Negative) 04/22/19 02:40 Urine Blood 1+ (Negative) A 04/22/19 02:40 Urine Nitrate Positive (Negative) A 04/22/19 02:40 Urine Bilirubin Negative (Negative) 04/22/19 02:40 Urine Urobilinogen Negative (Negative) 04/22/19 02:40 Ur Leukocyte Esterase 2+ (Negative) A 04/22/19 02:40 Urine WBC (Auto) 3+(>20/hpf) (Absent) A 04/22/19 02:40 Urine RBC (Auto) Trace(0-2/hpf) (Absent) 04/22/19 02:40 Urine Bacteria 3+ (Absent) A 04/22/19 02:40 Urine Glucose Negative (Negative) 04/22/19 02:40 Blood Type O Positive 04/21/19 22:05 Antibody Screen Negative 04/21/19 22:05
[2019-04-23] MEDS: Docusate CAP* 100 MG PO SCH ×2 (09:46→20:52)
[2019-04-23] MEDS: Polyethylene Glycol 3350* 17 GM PACKET PO SCH (09:46)
[2019-04-23] MEDS: Apixaban* 2.5 MG TAB PO SCH ×2 (10:15→20:52)
[2019-04-23] MEDS ORDERED: Enoxaparin(*) 40 MG/0.4 ML SYR SUBCUT SCH (12:00)
--- NOTE | 2019-04-23 13:13 | PN ---
Subjective Date of Service: 04/23/19 Interval History: Ms. Leung is feeling fine today. She offers no complaints. Denies pain at rest but is anticipating pain when she has to get up with PT. She is hoping to get into PMRU. Denies CP, SOB, N/V. Good appetite. No concerns from nursing. Family History: Unchanged from Admission Social History: Unchanged from Admission Past Medical History: Unchanged from Admission Objective Active Medications: Acetaminophen (Tylenol Tab*) 650 mg PO Q4H PRN FEVER/PAIN Apixaban (Eliquis*) 2.5 mg PO BID ANJALI Atorvastatin Calcium (Lipitor*) 10 mg PO BEDTIME ANJALI Docusate Sodium (Colace Cap*) 100 mg PO BID ANJALI Levetiracetam (Keppra Tab*) 1,000 mg PO BID ANJALI Magnesium Hydroxide (Milk Of Magnesia Liq*) 30 ml PO BID PRN CONSTIPATION Melatonin (Melatonin) 3 mg PO BEDTIME ANJALI Morphine Sulfate (Morphine Inj (Syringe))*) 2 mg IV Q2H PRN PAIN Morphine Sulfate (Morphine Inj (Syringe))*) 2 mg IV ONCE PRN PAIN Ondansetron HCl (Zofran Inj*) 4 mg IV Q6H PRN NAUSEA Oxycodone HCl (Roxycodone Tab*) 5 mg PO Q4H PRN PAIN - MILD TO MODERATE Oxycodone HCl (Roxycodone Tab*) 10 mg PO Q6H PRN PAIN - SEVERE Polyethylene Glycol/Electrolytes (Miralax*) 17 gm PO DAILY ANJALI Senna (Senokot Tab*) 1 tab PO BEDTIME PRN CONSTIPATION Tramadol HCl (Ultram*) 50 mg PO Q8H PRN PAIN Vital Signs - 8 hr 04/23/19 04/23/19 04/23/19 05:41 07:34 07:41 Temperature 98.7 F Pulse Rate 99 Respiratory 18 16 16 Rate Blood Pressure 147/67 (mmHg) O2 Sat by Pulse 94 Oximetry 04/23/19 04/23/19 08:00 11:22 Temperature 98.7 F Pulse Rate 97 Respiratory 16 16 Rate Blood Pressure 116/62 (mmHg) O2 Sat by Pulse 97 Oximetry Oxygen Devices in Use Now: None Appearance: Elderly female laying in bed in NAD Eyes: No Scleral Icterus Ears/Nose/Mouth/Throat: Mucous Membranes Moist Neck: NL Appearance and Movements; NL JVP, Trachea Midline Respiratory: Symmetrical Chest Expansion and Respiratory Effort, Clear to Auscultation Cardiovascular: NL Sounds; No Murmurs; No JVD, RRR Abdominal: NL Sounds; No Tenderness; No Distention Extremities: No Edema Skin: - - Surgical dressing left hip Neurological: Alert and Oriented x 3, NL Sensation Lines/Tubes/Other Access: Clean, Dry and Intact Araujo, Clean, Dry and Intact Peripheral IV Nutrition: Taking PO's Result Diagrams: 04/23/19 04:51 04/23/19 04:51 Assess/Plan/Problems-Billing Assessment: Ms. 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 - Patient Problems (1) Fracture of femoral neck, left Code(s): S72.002A - FRACTURE OF UNSP PART OF NECK OF LEFT FEMUR, INIT Comment : - POD #1 - Secondary to mechanical fall - Management per Ortho - Remove Araujo today - PT/OT - Continue morphine, Tramadol; added bowel regimen (2) LILI (acute kidney injury) Code(s): N17.9 - ACUTE KIDNEY FAILURE, UNSPECIFIED Comment: - Resolved with IVF - Likely secodary to dehydration - Hold lisinopril (3) Hypertension Code(s): I10 - ESSENTIAL (PRIMARY) HYPERTENSION Comment: - Normotensive, SBP 110s - Hold lisinopril (4) Hyperlipidemia Code(s): E78.5 - HYPERLIPIDEMIA, UNSPECIFIED Comment: - Continue atorvastatin (5) Seizure disorder Code(s): G40.909 - EPILEPSY, UNSP, NOT INTRACTABLE, WITHOUT STATUS EPILEPTICUS Comment: - Secondary to aneurysm, s/p clipping in 2009 - Continue Keppra (6) DVT prophylaxis Code(s): Z29.9 - ENCOUNTER FOR PROPHYLACTIC MEASURES, UNSPECIFIED Comment: - Eliquis per Ortho (7) DNR (do not resuscitate) Comment: Status and Disposition: Inpatient. Anticipate need for rehab. Attending: Manpreet Santa
[2019-04-23] MEDS: Acetaminophen TAB* 325 MG PO PRN (20:52)
[2019-04-23] MEDS: Melatonin 3 MG TAB PO SCH (20:52)
[2019-04-23] MEDS: Atorvastatin* 10 MG TAB PO SCH (20:52)
[2019-04-24] MEDS: traMADol TAB* 50 MG PO PRN (03:42)
[2019-04-24 06:29] LABS: ABS Eosinophils 0.7 10^3/ul (0-0.6); ABS Lymphocytes 1.2 10^3/ul (1.0-4.8); ABS Monocytes 1.1 10^3/ul (0-0.8); ABS Neutrophils 5.6 10^3/ul (1.5-7.7); Eosinophil % 7.9 %; Hematocrit 33 % (35-47); Hemoglobin 11.2 g/dL (12.0-16.0); Lymphocyte % 14.4 %; Mean Corpuscular HGB Conc 34 g/dL (31-36); Mean Corpuscular Hemoglobin 30 pg (27-31); Mean Corpuscular Volume 88 fL (80-97); Mean Platelet Volume 8.4 fL (7.4-10.4); Nucleated Red Blood Cells % 0.1; Platelet Count 178 10^3/uL (150-450); Red Blood Count 3.76 10^6 /uL (3.70-4.87); Red Cell Distribution Width 13 % (10-15); White Blood Count 8.7 10^3/uL (3.5-10.8)
[2019-04-24 06:59] LABS: BUN/Creatinine Ratio 15.9 (8-20); Calcium 8.7 mg/dL (8.6-10.3); EGFR African American 109.7 (>60); EGFR Non-African American 90.7 (>60); Potassium 4.1 mmol/L (3.5-5.0)
[2019-04-24] MEDS: levETIRAcetam TAB* 500 MG PO SCH (09:17)
[2019-04-24] MEDS: Apixaban* 2.5 MG TAB PO SCH (09:17)
[2019-04-24] MEDS: Docusate CAP* 100 MG PO SCH (09:17)
[2019-04-24] MEDS: Polyethylene Glycol 3350* 17 GM PACKET PO SCH (09:17)
--- NOTE | 2019-04-24 13:03 | PN ---
Progress Note - Progress Note Date of Service: 04/24/19 SOAP: Subjective: []Pt seen at bedside. She feels well, reports no pain of left hip. Denies CP, SOB, dizziness, nausea. Objective: []General: NAD, A&Ox3 LLE: Dressing changed, incision CDI. Thigh is soft. DF/PF intact, DP2+, sensation intact to light touch distally BL LE calves supple and nontender without erythema, edema or palpable cords Assessment: []POD 2 sp L hip cannulated screws Plan: []WBAT PT/OT DVT prophy: Eliquis 2.5 mg po BID x 6 weeks post op PMRU vs home today Follow up with Dr Heck 10-14 days post op Daily dry sterile dressing change with gauze and tape Vital Signs Temp 98.1 F 04/24/19 11:15 Pulse 94 04/24/19 11:15 Resp 14 04/24/19 11:15 BP 120/78 04/24/19 11:15 Pulse Ox 100 04/24/19 11:15 Intake & Output 04/23/19 04/24/19 04/24/19 18:59 06:59 18:59 Intake Total 470 440 320 Output Total 650 100 Balance -180 340 320 Intake: Oral 470 440 320 Output: Urine 400 100 Araujo 250 Other: Estimated Void Medium Medium # Bowel Movements 1 Estimated Stool Amount Small Medium # Voids 1 1 Laboratory Last Values WBC 8.7 10^3/uL (3.5-10.8) 04/24/19 06:16 RBC 3.76 10^6 /uL (3.70-4.87) 04/24/19 06:16 Hgb 11.2 g/dL (12.0-16.0) L 04/24/19 06:16 Hct 33 % (35-47) L 04/24/19 06:16 MCV 88 fL (80-97) 04/24/19 06:16 MCH 30 pg (27-31) 04/24/19 06:16 MCHC 34 g/dL (31-36) 04/24/19 06:16 RDW 13 % (10-15) 04/24/19 06:16 Plt Count 178 10^3/uL (150-450) 04/24/19 06:16 MPV 8.4 fL (7.4-10.4) 04/24/19 06:16 Neut % (Auto) 65.0 % 04/24/19 06:16 Lymph % (Auto) 14.4 % 04/24/19 06:16 [place] % (Auto) 12.2 % 04/24/19 06:16 Eos % (Auto) 7.9 % 04/24/19 06:16 Baso % (Auto) 0.5 % 04/24/19 06:16 Absolute Neuts (auto) 5.6 10^3/ul (1.5-7.7) 04/24/19 06:16 Absolute Lymphs (auto) 1.2 10^3/ul (1.0-4.8) 04/24/19 06:16 Absolute Monos (auto) 1.1 10^3/ul (0-0.8) H 04/24/19 06:16 Absolute Eos (auto) 0.7 10^3/ul (0-0.6) H 04/24/19 06:16 Absolute Basos (auto) 0.0 10^3/ul (0-0.2) 04/24/19 06:16 Absolute Nucleated RBC 0.0 10^3/ul 04/24/19 06:16 Nucleated RBC % 0.1 04/24/19 06:16 INR (Anticoag Therapy) 1.03 (0.82-1.09) 04/21/19 22:05 APTT 34.5 seconds (26.0-38.0) 04/21/19 22:05 Sodium 140 mmol/L (135-145) 04/24/19 06:16 Potassium 4.1 mmol/L (3.5-5.0) 04/24/19 06:16 Chloride 110 mmol/L (101-111) 04/24/19 06:16 Carbon Dioxide 23 mmol/L (22-32) 04/24/19 06:16 Anion Gap 7 mmol/L (2-11) 04/24/19 06:16 BUN 10 mg/dL (6-24) 04/24/19 06:16 Creatinine 0.63 mg/dL (0.51-0.95) 04/24/19 06:16 Est GFR ( Amer) 109.7 (>60) 04/24/19 06:16 Est GFR (Non-Af Amer) 90.7 (>60) 04/24/19 06:16 BUN/Creatinine Ratio 15.9 (8-20) 04/24/19 06:16 Glucose 114 mg/dL (70-100) H 04/24/19 06:16 Lactic Acid 1.3 mmol/L (0.5-2.0) 04/21/19 22:05 Calcium 8.7 mg/dL (8.6-10.3) 04/24/19 06:16 Total Bilirubin 0.50 mg/dL (0.2-1.0) 04/21/19 22:05 AST 28 U/L (13-39) 04/21/19 22:05 ALT 20 U/L (7-52) 04/21/19 22:05 Alkaline Phosphatase 62 U/L (34-104) 04/21/19 22:05 Total Protein 7.6 g/dL (6.4-8.9) 04/21/19 22:05 Albumin 4.5 g/dL (3.2-5.2) 04/21/19 22:05 Globulin 3.1 g/dL (2-4) 04/21/19 22:05 Albumin/Globulin Ratio 1.5 (1-3) 04/21/19 22:05 Urine Color Yellow 04/22/19 02:40 Urine Appearance Cloudy 04/22/19 02:40 Urine pH 6.0 (5-9) 04/22/19 02:40 Ur Specific [place] 1.012 (1.010-1.030) 04/22/19 02:40 Urine Protein Negative (Negative) 04/22/19 02:40 Urine Ketones Negative (Negative) 04/22/19 02:40 Urine Blood 1+ (Negative) A 04/22/19 02:40 Urine Nitrate Positive (Negative) A 04/22/19 02:40 Urine Bilirubin Negative (Negative) 04/22/19 02:40 Urine Urobilinogen Negative (Negative) 04/22/19 02:40 Ur Leukocyte Esterase 2+ (Negative) A 04/22/19 02:40 Urine WBC (Auto) 3+(>20/hpf) (Absent) A 04/22/19 02:40 Urine RBC (Auto) Trace(0-2/hpf) (Absent) 04/22/19 02:40 Urine Bacteria 3+ (Absent) A 04/22/19 02:40 Urine Glucose Negative (Negative) 04/22/19 02:40 Blood Type O Positive 04/21/19 22:05 Antibody Screen Negative 04/21/19 22:05
[2019-04-24] MEDS: Acetaminophen TAB* 325 MG PO PRN (15:05)
[2019-04-24 15:17] VITALS: BP 140/79
--- NOTE | 2019-04-24 19:57 | DS ---
CC: Dr. Reed Santos; Dr. Jim Heck* DISCHARGE SUMMARY: DATE OF ADMISSION: 04/21/19 DATE OF DISCHARGE: 04/24/19 PRIMARY CARE PROVIDER: Dr. Reed Santos. ORTHOPEDIC SURGEON: Dr. Jim Heck. ATTENDING PHYSICIAN: Dr. Rochelle Kenney* (dictated by Nikki Rivera NP). PRIMARY DIAGNOSES: 1. Left femoral neck fracture, status post ORIF. 2. Urinary tract infection, Escherichia coli. 3. Acute kidney injury. SECONDARY DIAGNOSES: 1. Hypertension. 2. Hyperlipidemia. 3. Seizure disorder. STUDIES WHILE IN THE HOSPITAL: 1. EKG on 04/21/19 shows sinus tachycardia with a rate of 107, QTc 442, Q waves appear present in III and aVF, although this EKG is very difficult to read due to artifact. 2. Left hip/pelvis x-ray on 04/21/19 reads as subcapital left femoral neck fracture. 3. Pelvis CT on 04/21/19 reads as impacted left subcapital femoral neck fracture with mild soft tissue swelling. On sagittal images, there is a cortical break in the inferior sacrum without any associated soft tissue swelling. Likely old. 4. Left femur x-ray on 04/21/19 reads as subcapital left femoral neck fracture. 5. EKG on 04/22/19 shows sinus arrhythmia with a rate of 105, QTc 494, Q waves present in III and aVF. HISTORY OF PRESENT ILLNESS AND HOSPITAL COURSE: Ms. 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 Please see the history and physical by Dr. Cortés for a complete summary of the events leading up to this hospitalization. In short, the patient had a mechanical fall when she was cleaning her cat litter box. She fell onto her left hip. There was no head injury. She had immediate left hip pain with difficulty bearing weight and so presented to the emergency room. In the emergency room, she had imaging as noted above. She had lab work, which was remarkable for an elevated leukocytosis with a white blood count of 13 and acute kidney injury with a creatinine of 1.16. Urinalysis did show bacteria, leukocyte esterase, and nitrites. Due to her noted hip fracture, she was admitted by the hospitalist service. Orthopedics was consulted. The patient was medically optimized for surgery and taken to the operating room by Dr. Heck on 04/22/19, during which time she underwent repair with left hip cannulated screws. She had minimal blood loss and recovered well. The patient experienced minimal pain after surgery and no complications. She was working with Physical Therapy and was noted to be doing quite well, therefore not meeting any criteria for rehab. She was having very little pain, only requiring occasional tramadol for pain management. Vital signs have been stable with occasional mild tachycardia. Acute kidney injury resolved with IV fluids and white blood count also resolved. I suspect that her leukocytosis on admission was simply reactive secondary to trauma. The patient denied any urinary symptoms, but was noted to have a urine culture, which grew greater than 100,000 colonies of E. coli. Sensitivities are not back at this point. The patient is agreeable to returning home and has family who is willing to assist her in her activities of daily living. The patient has been cleared for discharge by Orthopedics. The patient has no focal neurological deficits. Her heart has a regular rate and rhythm without murmurs , rubs, or gallops. Lungs are clear to auscultation without any rhonchi, wheezes, or rales. She moves all extremities and there is no noted edema. Ms. Leung is stable for discharge today. Vital signs are as follows: Temp 98.9, heart rate 94, respiratory rate 16, oxygen saturation 100% on room air, blood pressure 140/79. DISCHARGE MEDICATIONS: New medications: 1. Acetaminophen 650 mg p.o. q.4 hours p.r.n. fever or pain. 2. Eliquis 2.5 mg p.o. b.i.d. x6 weeks. 3. Cephalexin 500 mg p.o. b.i.d. x7 days. 4. Docusate 100 mg p.o. b.i.d. 5. Milk of mag 30 mL p.o. b.i.d. p.r.n. constipation. 6. MiraLAX 17 g p.o. daily. 7. Senna 1 tab p.o. at bedtime p.r.n. constipation. 8. Tramadol 50 mg p.o. q.8 hours p.r.n. pain, max daily dose 3 tabs. Continued medications: 1. Simvastatin 20 mg p.o. at bedtime. 2. Keppra 1000 mg p.o. b.i.d. 3. Lisinopril 10 mg p.o. daily. 4. Multivitamin 1 tab p.o. daily. DISCHARGE PLAN: Ms. Leung will be discharged home in the care of her family. Activity per Orthopedics will be weightbearing as tolerated. Diet will be regular as tolerated. It is recommended that the patient continue physical therapy and occupational therapy as an outpatient. Orthopedics has recommended a daily dry sterile dressing with gauze and tape to the left hip. Medications as noted above. Per Orthopedics, the patient will need to be on Eliquis for 6 weeks postoperatively. She has received a full 2 days of Eliquis here in the hospital and I have prescribed the remaining 6 weeks to her. I have additionally prescribed a small supply of tramadol and it has been recommended that she take the medications noted above for bowel regimen. She will also need to complete 7 days of cephalexin for her urinary tract infection. I will note that at this point the urine culture is growing E. coli, though there are no sensitivities and based on sensitivities, antibiotic choice may need to be reassessed by the patient's primary care provider should this be a resistant strain of E. coli. The patient should follow up with her primary care provider in 4 to 7 days. She will need to follow up with her surgeon, Dr. Heck, 10 to 14 days postoperatively. She has been instructed to return to the emergency room or nearest hospital for any worsening of symptoms, shortness of breath, lightheadedness, dizziness, chest discomfort, high fever, chills, night sweats, loss of consciousness, or any other worrisome signs or symptoms. DISCHARGE CONDITION: Stable. DISCHARGE DISPOSITION: Home. This is a summarized report of a complex medical history and hospital stay. For further details, please see the entire medical record. TIME SPENT: Approximately 60 minutes was spent on this discharge. NIKKI RIVERA, PROMISE [id number]/[facility] #: [id number] [place]
== END 2019-04-24 19:50 | disposition home health service (06) | DRG 481 ==
LOC: ED 19:58 → SSU 23:37
PROVIDERS: ADMIT Internal Medicine; ATTEND Internal Medicine
PROC: 0QS734Z Reposition Left Upper Femur with Internal Fixation Device, Percutaneous Approach (ICD-10-PCS; principal; 2019-04-22 09:30)
DX: S72.012A Unspecified intracapsular fracture of left femur, initial encounter for closed fracture (principal); N17.9 Acute kidney failure, unspecified; N39.0 Urinary tract infection, site not specified; Z66 Do not resuscitate; I10 Essential (primary) hypertension; E78.5 Hyperlipidemia, unspecified; G40.909 Epilepsy, unspecified, not intractable, without status epilepticus; R00.0 Tachycardia, unspecified; E86.1 Hypovolemia; B96.20 Unspecified Escherichia coli [E. coli] as the cause of diseases classified elsewhere; F17.210 Nicotine dependence, cigarettes, uncomplicated; W01.0XXA Fall on same level from slipping, tripping and stumbling without subsequent striking against object, initial encounter; M19.90 Unspecified osteoarthritis, unspecified site; Y92.009 Unspecified place in unspecified non-institutional (private) residence as the place of occurrence of the external cause; Z79.899 Other long term (current) drug therapy; Z82.49 Family history of ischemic heart disease and other diseases of the circulatory system
CPT/HCPCS: 36415; 72192; 80048; 80053; 81003; 81015; 83605; 85025; 85610; 85730; 86850; 86900; 86901; 87077; 87086; 87186; 93005; 99284; A9270-GY; C1713; G8978-GP-CK; G8979-GP-CI; G8987-GO-CI; G8988-GO-CI; G8989-GO-CI; J0690; J2270; J2795

== ENCOUNTER 2019-05-17 17:48 | Inpatient (IN) | payer MEDICARE ==
[2019-05-18 01:11] LABS: Hematocrit 32 % (35-47); Hemoglobin 10.5 g/dL (12.0-16.0); Mean Corpuscular HGB Conc 33 g/dL (31-36); Mean Corpuscular Hemoglobin 29 pg (27-31); Mean Corpuscular Volume 86 fL (80-97); Mean Platelet Volume 8.5 fL (7.4-10.4); Platelet Count 285 10^3/uL (150-450); Red Blood Count 3.65 10^6 /uL (3.70-4.87); Red Cell Distribution Width 14 % (10-15); White Blood Count 18.1 10^3/uL (3.5-10.8)
--- NOTE | 2019-05-18 01:12 | ED ---
Lower Extremity - HPI Summary HPI Summary: Patient complains of persistent left hip pain and decreased mobility status post hip repair by Dr. Heck on 04/22. Patient thinks screws are coming out of left hip. Patient has scheduled follow-up in 1 month. Denies any other pain injury or symptoms. - History of Current Complaint Chief Complaint: EDHipPelvisInjury Stated Complaint: SCREWS OUT OF HIP ARE POSS COMING OUT PER PT Time Seen by Provider: 05/17/19 23:57 Hx Obtained From: Patient Mechanism Of Injury: Other Severity Initially: Moderate Severity Currently: None Pain Intensity: 0 Pain Scale Used: 0-10 Numeric Timing: Intermittent Character Of Pain: Aching, Throbbing Associated Signs And Symptoms: Positive: Negative Aggravating Factor(s): Standing, Ambulation, Weight Bearing Alleviating Factor(s): Rest, Elevation Able to Bear Weight: Yes - Allergies/Home Medications Allergies/Adverse Reactions: Allergies Allergy/AdvReac Type Severity Reaction Status Date / Time No Known Allergies Allergy Verified 05/18/19 00:15 PMH/Surg Hx/FS Hx/Imm Hx Endocrine/Hematology History: Denies: Hx Anticoagulant Therapy, Hx Diabetes, Hx Anemia, Hx Unexplained Bleeding Cardiovascular History: Reports: Hx Hypertension, Other Cardiovascular Problems/ Disorders - HIGH CHOLESTEROL Denies: Hx Aneurysm, Hx Angina, Hx Angioplasty, Hx Auto Implanted Cardiovert Defib, Hx Cardiac Arrest, Hx Cardiomegaly, Hx Congenital Heart Disease, Hx Congestive Heart Failure, Hx Coronary Artery Disease, Hx Deep Vein Thrombosis, Hx Embolism, Hx Hypercholesterolemia, Hx Hypotension, Hx Pacemaker/ICD, Hx Peripheral Vascular Disease, Hx Rheumatic Fever, Hx Syncope, Hx Valvular Heart Disease Respiratory History: Denies: Hx Chronic Obstructive Pulmonary Disease (COPD) History: Denies: Hx Dialysis Musculoskeletal History: Reports: Hx Arthritis - FINGERS HANDS Sensory History: Reports: Hx Contacts or Glasses, Hx Deafness, Hx Hearing Aid, Hx Hearing Problem Denies: Hx Cataracts, Hx Eye Injury, Hx Eye Prosthesis, Hx Glaucoma, Hx Legally Blind, Hx Macular Degeneration, Hx Vision Problem, Other Sensory Impairments Opthamlomology History: Reports: Hx Contacts or Glasses Denies: Hx Cataracts, Hx Eye Injury, Hx Eye Prosthesis, Hx Glaucoma, Hx Legally Blind, Hx Macular Degeneration, Hx Vision Problem, Other Sensory Impairments Neurological History: Reports: Hx Seizures Denies: Hx Dementia, Hx Developmental Delay, Hx Headaches, Hx Migraine, Hx Nerve Disease, Hx Spinal Cord Injury, Hx Transient Ischemic Attacks (TIA), Other Neuro Impairments/Disorders - Cancer History Hx Chemotherapy: No - Surgical History Surgery Procedure, Year, and Place: CRANIOTOMY 2010 [facility] [employer] Hx Anesthesia Reactions: No Infectious Disease History: No Infectious Disease History: Denies: Traveled Outside the [place] in Last 30 Days - Family History Known Family History: Positive: Non-Contributory - Social History Alcohol Use: None Substance Use Type: Reports: None Smoking Status (MU): Never Smoked Tobacco Have You Smoked in the Last Year: No Review of Systems Constitutional: Negative Eyes: Negative ENT: Negative Cardiovascular: Negative Respiratory: Negative Gastrointestinal: Negative Genitourinary: Negative Musculoskeletal: Other Skin: Negative Neurological: Negative Psychological: Normal All Other Systems Reviewed And Are Negative: Yes Physical Exam - Summary Physical Exam Summary: No ecchymosis, erythema, deformity, swelling, skin tenting noted to left hip. Patient flexes and extends left lower extremity with full range of motion. No apparent distress. PMS intact distally. Triage Information Reviewed: Yes Vital Signs On Initial Exam: Initial Vitals Temp Pulse Resp BP Pulse Ox 98.5 F 105 16 125/68 99 05/17/19 18:13 05/17/19 18:13 05/17/19 18:13 05/17/19 18:13 05/17/19 18:13 Vital Signs Reviewed: Yes Appearance: Positive: Well-Appearing Skin: Positive: Warm Head/Face: Positive: Normal Head/Face Inspection Eyes: Positive: Normal Neck: Positive: Supple Respiratory/Lung Sounds: Positive: Clear to Auscultation Cardiovascular: Positive: Normal Abdomen Description: Positive: Nontender Musculoskeletal: Positive: Normal Neurological: Positive: Normal Psychiatric: Positive: Normal AVPU Assessment: Alert - [place] Coma Scale Best Eye Response: 4 - Spontaneous Best Motor Response: 6 - Obeys Commands Best Verbal Response: 5 - Oriented Coma Scale Total: 15 Diagnostics - Vital Signs Vital Signs Temp Pulse Resp BP Pulse Ox 05/17/19 20:03 97.6 F 99 16 110/65 100 05/17/19 18:13 98.5 F 105 16 125/68 99 - Laboratory Result Diagrams: 05/19/19 07:53 05/19/19 07:53 Lab Statement: Any lab studies that have been ordered have been reviewed, and results considered in the medical decision making process. Lower Extremity Course/Dx - Course Course Of Treatment: Patient complains of persistent left hip pain and decreased mobility status post hip repair by Dr. Heck on 04/22. Patient thinks screws are coming out of left hip. Patient has scheduled follow-up in 1 month. Denies any other pain injury or symptoms. Vital signs within normal limits. X-ray shows no acute processes compared to prior x-ray. Follow-up with surgery Dr. Heck for further evaluation. Patient understands the plan. - Diagnoses Provider Diagnoses: Acute cholecystitis, Acute postoperative pain of left hip Discharge - Sign-Out/Discharge Documenting (check all that apply): Patient Departure, Sign-Out Patient Signing out patient TO: Enrique Garcia Patient Received Moderate/Deep Sedation with Procedure: No - Discharge Plan Condition: Improved Disposition: ADMITTED TO [facility] - Billing Disposition and Condition Condition: IMPROVED Disposition: Admitted to [facility]
[2019-05-18 01:20] LABS: ALT 80 U/L (7-52); AST 56 U/L (13-39); Albumin 2.9 g/dL (3.2-5.2); Albumin/Globulin Ratio 0.8 (1-3); Alkaline Phosphatase 361 U/L (34-104); Anion Gap 9 mmol/L (2-11); BUN/Creatinine Ratio 28.4 (8-20); Blood Urea Nitrogen 19 mg/dL (6-24); C Reactive Protein 143.06 mg/L (<8.01); CO2 Carbon Dioxide 25 mmol/L (22-32); Calcium 8.6 mg/dL (8.6-10.3); Chloride 98 mmol/L (101-111); EGFR African American 102.2 (>60); EGFR Non-African American 84.5 (>60); Globulin 3.5 g/dL (2-4); Glucose 124 mg/dL (70-100); Potassium 3.7 mmol/L (3.5-5.0); Sodium 132 mmol/L (135-145); Total Protein 6.4 g/dL (6.4-8.9)
[2019-05-18 01:36] LABS: ABS Lymphocytes 0.7 10^3/ul (1.0-4.8); ABS Monocytes 1.2 10^3/ul (0-0.8); ABS Neutrophils 16.1 10^3/ul (1.5-7.7); Eosinophil % 0.2 %; Lymphocyte % 4.1 %
[2019-05-18 02:28] LABS: Hepatitis B Surface Antigen Negative (Negative)
[2019-05-18 02:45] LABS: Hepatitis C Antibody Negative (Negative)
[2019-05-18] MEDS ORDERED: Iohexol 300* (CONTRAST) 10 ML SDV IV ONE (03:04)
[2019-05-18 03:05] LABS: Acetaminophen < 15 mcg/mL
--- NOTE | 2019-05-18 04:06 | ED ---
Progress - Progress Note Progress Note: Pt is a signout from CRISTA Velasquez, pending CT a/p results. - Results/Orders Results/Orders: CT a/p shows: 1. Cholelithiasis. 2. Filling defect within the common bile duct, probably calculus. 3. Dilated common bile duct. 4. Mild dilatation of a few of the intrahepatic biliary radicles. 5. Colonic diverticulosis. 6. Bilateral renal cysts. 7. Uterine atrophy with calcifications. 8. Status post open reduction and internal fixation of a left subcapital fracture. 9. Small hiatus hernia. ED physician has reviewed this report. Course/Dx - Course Course Of Treatment: Pt is a signout from CRISTA Velasquez, pending CT a/p results. CT a/p shows: 1. Cholelithiasis. 2. Filling defect within the common bile duct, probably calculus. 3. Dilated common bile duct. 4. Mild dilatation of a few of the intrahepatic biliary radicles. 5. Colonic diverticulosis. 6. Bilateral renal cysts. 7. Uterine atrophy with calcifications. 8. Status post open reduction and internal fixation of a left subcapital fracture. 9. Small hiatus hernia. Pt has acute cholecystitis. 0536 - I spoke with Dr. Veliz about the pt's present condition who recommends giving GI a call for an ERCP, because it may be cholangitis rather than cholecystitis. Pt will be signed out to Dr. Riley pending GI consult. - Diagnoses Provider Diagnoses: Acute cholecystitis, Acute postoperative pain of left hip Discharge - Sign-Out/Discharge Documenting (check all that apply): Sign-Out Patient, Receiving Sign-Out Signing out patient TO: Roderick Riley Receiving patient FROM: Enrique Gan - Discharge Plan Condition: Stable Patient Education Materials: Hip Pain (ED) Referrals: Reed Santos MD [Primary Care Provider] - Additional Instructions: Follow-up with your orthopedic surgeon Dr. Heck today for further evaluation of increasing postoperative left hip pain. Return to the ED for any new or worsening symptoms. - Attestation Statements Document Initiated by Scribe: Yes Documenting Scribe: Sigrid Yuen Provider For Whom Scribe is Documenting (Include Credential): Enrique Garcia MD. Scribe Attestation: ISigrid, glened for Enrique Garcia MD. on 05/18/19 at 0700. Status of Scribe Document: Ready Consult Consult: 1728 - I spoke with Dr. Veliz about the pt's present condition who recommends giving GI a call for an ERCP, because it may be cholangitis rather than cholecystitis.
[2019-05-18] MEDS ORDERED: Piperacillin/Tazobac ADVAN(*) 3.375 GM in NS 0.9% 100 ML* 100 ML IVPB ONE ×2 (05:38→09:11)
[2019-05-18] MEDS ORDERED: Lactated Ringers 1000 ML Bag* 1,000 ML IV SCH (06:00)
--- NOTE | 2019-05-18 07:23 | ED ---
Progress - Progress Note Progress Note: This patient was signed out from Dr. Garcia to Dr. Riley upon shift change at 07:00 05/18/19 pending GI consult. Discussed case with Dr. Beyer, LIANET, who will consult with the patient. Discussed case with Dr. Browne, , will consult with this patient. Discussed case with Dr. Kenney, hospitalist, who accepted the patient for admission. The patient is agreeable with this plan. Course/Dx - Course Course Of Treatment: This patient was signed out by Dr. Garcia previous ER attending at shift change. He requested to speak with GI for consult and admit the patient to the hospitalist. I discussed the case with Dr. Browne from and he accepts the patient for consult and also discussed the case with Dr. Kenney from the hospital services who will accept the patient for admission. Patient continues to be hemodynamically stable alert and oriented 3. - Diagnoses Provider Diagnoses: Acute cholecystitis, Acute postoperative pain of left hip - Provider Notifications Discussed Care Of Patient With: Yovani Beyer Time Discussed With Above Provider: 07:20 Instructed by Provider To: Other - will consult with the patient Discharge - Sign-Out/Discharge Documenting (check all that apply): Patient Departure - admit, Receiving Sign- Out Receiving patient FROM: Enrique Garcia - Discharge Plan Condition: Fair Disposition: ADMITTED TO [facility] Patient Education Materials: Hip Pain (ED) Referrals: Reed Santos MD [Primary Care Provider] - Additional Instructions: Follow-up with your orthopedic surgeon Dr. Heck today for further evaluation of increasing postoperative left hip pain. Return to the ED for any new or worsening symptoms. - Billing Disposition and Condition Condition: FAIR Disposition: Admitted to [facility] - Attestation Statements Document Initiated by Mylaibe: Yes Documenting Scribe: Terry Crespo Provider For Whom Mian is Documenting (Include Credential): Roderick Riley MD Scribe Attestation: Terry Braden, scribed for Roderick Riley MD on 05/18/19 at 0813. Scribe Documentation Reviewed: Yes Provider Attestation: The documentation as recorded by the Terry rodrigues accurately reflects the service I personally performed and the decisions made by me, Roderick Riley MD Status of Scribe Document: Viewed Consult Consult: At 07:[address] Browne, GI, will consult with this patient. At 07:[address] Kenney, hospitalist, who accepted the patient for admission.
[2019-05-18 07:57] LABS: Urine Appearance Cloudy; Urine Bacteria 1+ (Absent); Urine Bilirubin Negative (Negative); Urine Blood 1+ (Negative); Urine Color Yellow; Urine Glucose Negative (Negative); Urine Ketones Negative (Negative); Urine Nitrite Positive (Negative); Urine Protein Negative (Negative); Urine Red Blood Cell 1+(3-5/hpf) (Absent); Urine Specific Gravity 1.042 (1.010-1.030); Urine Squamous Epithelial Cell Present (Absent); Urine Urobilinogen Negative (Negative); Urine White Blood Cell 1+(6-10/hpf) (Absent)
[2019-05-18] MEDS ORDERED: Acetaminophen TAB* 325 MG PO PRN (09:08)
[2019-05-18] MEDS ORDERED: oxyCODONE/Acetamin 5/325 MG* TAB PO PRN (09:08)
[2019-05-18] MEDS ORDERED: NS 0.9% 1000 ML** 1,000 ML IV SCH (09:15)
[2019-05-18 09:41] LABS: Albumin 3.1 g/dL (3.2-5.2); Albumin/Globulin Ratio 0.8 (1-3); BUN/Creatinine Ratio 28.1 (8-20); Calcium 9.2 mg/dL (8.6-10.3); EGFR African American 123.2 (>60); EGFR Non-African American 101.8 (>60); Globulin 3.9 g/dL (2-4); Potassium 3.7 mmol/L (3.5-5.0); Total Bilirubin 3.5 mg/dL (0.2-1.0)
[2019-05-18] MEDS ORDERED: levETIRAcetam 1000MG IVPREMIX* 1,000 MG/100 ML BAG IV STA (09:57)
[2019-05-18] MEDS ORDERED: Zosyn per Pharmacy* NOTE FOLLOW UP SCH (10:00)
--- NOTE | 2019-05-18 11:15 | HP ---
CC: Dr. Reed Santos; Dr. Heck; Dr. Browne * HISTORY AND PHYSICAL: DATE OF ADMISSION: 05/18/19 PRIMARY CARE PROVIDER: Dr. Reed Santos. CHIEF COMPLAINT: Left hip pain. HISTORY OF PRESENT ILLNESS: Denia Leung is an 79-year-old female who underwent left hip ORIF on 04/22/[address] Heck. She stated that postoperatively she did well. She was ambulating with physical therapy until approximately 2 days ago when she started having more pain in the left hip area radiating to the medial thigh. She came into the ED for evaluation of the hip. Incidentally, her laboratory values revealed cholestatic picture and further evaluation with CT of abdomen showed likely common bile duct obstruction. The patient is going to be admitted with a diagnosis of common bile duct stone, likely cholangitis. PAST MEDICAL HISTORY: 1. History of hypertension. 2. Hyperlipidemia. 3. Arthritis. 4. History of seizure disorder in the setting of aneurysm and clipping in the past. 5. History of status post left hip ORIF on 04/22/19. PAST SURGICAL HISTORY: 1. Left hip ORIF 04/22/[address] Heck. 2. Cranial aneurysm clipping in 2009 at [facility]. MEDICATIONS: At home include: 1. Eliquis 2.5 mg b.i.d. 2. Acetaminophen on a p.r.n. basis. 3. Ultram 50 mg every 8 hours p.r.n. 4. Keppra 1000 mg b.i.d. 5. Simvastatin 20 mg at bedtime. 6. Senna 1 tablet at bedtime p.r.n. 7. MiraLax 17 g daily p.r.n. 8. Multivitamin 1 tablet daily. 9. Milk of magnesia on a p.r.n. basis. 10. Lisinopril 20 mg daily. 11. Colace 100 mg b.i.d. ALLERGIES: No known drug allergies. FAMILY HISTORY: Both parents with history of heart disease. SOCIAL HISTORY: The patient is a retired nurse, who lives at home. Currently, she lives with her daughter and her daughter, Anuel Leung, is listed as her surrogate. She denies any tobacco, alcohol, or drug use. REVIEW OF SYSTEMS: Please see history of present illness. The patient stated that since had been on Eliquis, she had been having intermittently "black streaks in her stool." She has had regular bowel movement once a day. Last one within 24 hours. She complains of no abdominal pain and no fevers. Complains of left hip pain as mentioned above. All the remaining 12 systems were reviewed with the patient and were otherwise negative. PHYSICAL EXAMINATION GENERAL: The patient is a pleasant 79-year-old female, who is in no acute distress. Alert, awake, and oriented x3. VITAL SIGNS: Blood pressure of 151/81, heart rate of 102 and regular, respiratory rate 16, oxygen saturation 96% on room air, temperature 97.6. HEENT: Head: Atraumatic, normocephalic. Eyes: Pupils are equal and reactive to light and accommodation. Oropharynx clear. Mucosa moist. NECK: Supple. No JVD. No bruits bilaterally. RESPIRATORY: Clear to auscultation bilaterally. CARDIOVASCULAR: Regular rate and rhythm. No murmur. ABDOMEN: Soft, nontender. Bowel sounds present in all 4 quadrants. EXTREMITIES: There is no pedal edema. Pulses are +2 bilaterally. There is no clubbing or cyanosis. SKIN: On evaluation of the skin, specifically of the left postoperative hip area, the postoperative incision is Steri-Stripped and no evidence of dehiscence or skin infection. There are no other rashes or ecchymotic areas noted. The patient's skin is mildly jaundiced. PSYCHIATRIC: The patient is pleasant and cooperative with evaluation. Oriented x3, rather forgetful. No evidence of anxiety or depression. DIAGNOSTIC STUDIES/LAB DATA: Laboratory data: White blood cell count of 18.1 , hemoglobin of 10.5, hematocrit of 32, and platelets of 285. Sodium was 132, potassium 3.7, chloride 98, carbon dioxide 25, BUN 19, creatinine 0.67. Liver function tests showed bilirubin total of 3.3, direct bilirubin of 1.8. AST of 56 , ALT of 80, alkaline phosphatase 361. C-reactive protein of 143. Urinalysis showed high specific gravity of 1.042, was positive for nitrites, trace blood, present bacteria, white blood cells and rbc's. Acute hepatitis panel was negative. CT of abdomen and pelvis showed "cholelithiasis. Filling defect within the common bile duct, probably calculus. Dilated common bile duct. Mild dilatation of few of the intrahepatic biliary radicles. Colonic diverticulosis. Bilateral renal cysts. Uterine atrophy and calcifications. Status post open reduction internal fixation of left subcapital fracture. Small hiatal hernia." Furthermore, in the body of the report, it was noted that common bile duct was noted to be 14 mm in diameter. Hip x-ray of the left side performed on 05/18/19, impression: "Status post internalization of proximal left femur." ASSESSMENT AND PLAN: 1. The patient came in with left hip pain and incidentally was noted to have jaundice and elevation of liver function tests. At this point, the patient is going to be admitted with working diagnosis of likely cholangitis. The patient' s blood cultures and lactic acid is still pending at the time of dictation. Her tachycardia and elevated white blood cell count indicate sepsis due to cholangitis. Zosyn that was started in the emergency department is going to be continued. I will ask Dr. Browne to see the patient in consultation. For the time being, the patient is going to be n.p.o. I am unsure if Dr. Browne will be able to do ERCP today due to patient's last Eliquis dose being last night. I also placed the patient on intravenous fluids. 2. The patient has history of noted black stools recently. At this point, her hemoglobin is slightly lower than her baseline, but she also is in postoperative state. I will request for stool Hemoccult. Her Eliquis is going to be held due to need for ERCP in the near future. 3. In regards to patient's left hip pain, I discussed the case with Dr. Heck. Apparently, the postoperative changes need to be repaired and the patient will require a redo of her left hip. She was informed about it. Dr. Heck will see the patient on Tuesday for non-urgent consult. 4. For DVT prophylaxis, the patient is going to be placed on sequential compression devices and her anticoagulation is going to be held due to anticipation of ERCP in the near future. 5. The patient's code status is full. Her surrogate is her daughter, Anuel. TIME SPENT: Approximately 75 minutes was spent on admission of this patient, more than half of that time was spent [id number] with the patient during the interview and physical exam. [id number]/[facility] #: [id number] [facility]
[2019-05-18] MEDS: ZOSYN 3.375 GM Q8H per EXTENDED INFUSION IVPB SCH ×4 (13:02→21:48)
[2019-05-18] MEDS ORDERED: INDOMETHACIN 50 MG PR ONE (14:30)
[2019-05-18] MEDS ORDERED: Phenylephrine 10 MG/ML VIAL* 1 ML VIAL ONE (15:13)
[2019-05-18] MEDS ORDERED: fentaNYL* 50 MCG/ML 2 ML VIAL (100 MCG VIAL) ONE (15:13)
[2019-05-18] MEDS ORDERED: Lidocaine 2% PF * 5 ML VIAL ONE (15:13)
[2019-05-18] MEDS ORDERED: Propofol* 10 MG/ML 20 ML BTL ONE (15:13)
[2019-05-18] MEDS ORDERED: Dexamethasone IV* 4 MG/ML 1 ML (4 MG) ONE (15:13)
[2019-05-18] MEDS ORDERED: Ondansetron INJ* 2 MG/ML VIAL ONE (15:13)
[2019-05-18] MEDS ORDERED: Cisatracurium* 2 MG/ML MDV 5 ML ONE (15:14)
[2019-05-18] MEDS ORDERED: Midazolam* 1 MG/ML 5 ML VIAL (5 MG) ONE (15:14)
--- NOTE | 2019-05-18 16:12 | CONS ---
GASTROENTEROLOGY CONSULT: DATE OF CONSULT: 05/18/19 CONSULTING PHYSICIANS: Dr. Rochelle Kenney, Dr. Reed Santos. REASON FOR CONSULT: Abnormal liver function tests and CT scan showing gallstones and a common bile duct stone. HISTORY: This 79-year-old retired [employer] comes in because of hip pain. While here , her lab tests were abnormal with white count 18, hemoglobin 10.5 (recent hip surgery), and bilirubin 3.30, ALT 81, alkaline phosphatase 381. She denies any abdominal pain. Her LFTs were absolutely normal up through 04/21. She denies any history of liver disease. There is listed in a 2010 chart remote alcohol abuse. She did have surgery on her hip on 04/22/19 and has been on low-dose Eliquis, last dose yesterday afternoon. PAST MEDICAL HISTORY: 1. History of subdural hematoma - aneurysm clipping at [facility] in 2009. 2. Chronic constipation. 3. Seizure disorder - on Keppra postop. 4. Hypertension - mild. MEDICATIONS: At home: 1. Eliquis 2.5 b.i.d. 2. Keppra 1000 b.i.d. 3. Simvastatin 20 h.s. 4. Polyethylene glycol 17 g p.r.n. 5. Lisinopril 20 q.a.m. 6. Docusate 100 b.i.d. SOCIAL HISTORY: Her son, Gilberto Leung, lives locally ([phone]) and she has 2 granddaughters working at [employer]. REVIEW OF SYSTEMS: No history of syncope, palpitations, [place], angina, TB, chronic pulmonary disease, chronic hepatitis, renal disease, or prior abdominal surgery. There is no listing of prior procedures, although her primary is in the [facility] system. PHYSICAL EXAM: She is a slender older woman, in no distress. Pulse 80 and regular, blood pressure 147/89, and she is afebrile at 99. HEENT exam shows muddy sclerae. Mucous membranes are normal. She has no adenopathy. Her lungs are clear and heart sounds are regular. Breast and Pelvic Exams: Deferred. Her abdomen is soft and nontender. There is really no mass or abnormality palpated. Zosyn is hanging. Extremities show no edema. DIAGNOSTIC STUDIES: CT review - common bile duct filling defect and diverticulosis, there is a small hiatal hernia. IMPRESSION: Common bile duct stone and dilated biliary tree in a patient with no symptoms consistent with biliary colic. The alkaline phosphatase is somewhat more elevated than typical for this situation. There is question of an ampullary abnormality or structural process independent of what has already been demonstrated. Nonetheless, ERCP would appear indicated and we will proceed. A diagram was used to describe the situation and the patient's questions were all answered. [id number]/[facility] #: [id number] [facility]
[2019-05-18] MEDS ORDERED: Ondansetron INJ* 2 MG/ML VIAL IV PRN (17:55)
[2019-05-18] MEDS ORDERED: Naloxone* 0.4 MG/ML 1 ML VIAL IV PRN (17:55)
[2019-05-18] MEDS ORDERED: fentaNYL* 50 MCG/ML 2 ML VIAL (100 MCG VIAL) IV PRN (17:55)
[2019-05-18] MEDS ORDERED: Dextran 70/Hypromellose Tears Eye Drops 15 ml BTL (for Artificials Tears) BOTH EYES PRN (21:14)
--- NOTE | 2019-05-18 21:44 | PRO ---
DATE: 05/18/19 - ROOM#[id number] REFERRING PHYSICIANS: Rochelle Kenney MD, Reed Santos MD * PROCEDURE: EGD and balloon dilation pyloric stenosis; ERCP and sphincterotomy with basket lithotripsy and then balloon extraction common bile duct stones. 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 Her white count was up at 18 and alkaline phosphatase 360. Informed consent was obtained diagram and discussion was held with patient's son at a separate time. ENDOSCOPIST: Dr. Browne. ANESTHESIA: Dr. Green. FINDINGS: She was positioned on her side. General anesthesia was utilized. An Indocin suppository was administered. She had previously been on Zosyn. Her last dose of Eliquis 2.5 was the evening before. ERCP - the side-viewing scope was advanced down into the stomach and there was no abnormality, although the pylorus appeared small. The scope would not pass. Several attempts were made. A switch was made to a standard gastroscope and this likewise would not pass through the pylorus, although visualization was a little better. A 12 to 15 balloon dilator was inserted into the duodenal bulb, carefully monitored officially. There had been no resistance. It was inflated to 1 atmosphere and a dilating effect was seen but the scope would not advance. A 12 mm dilation (3 atmospheres) was done. This resulted in some bleeding, clear dilating effect and the gastroscope would pass. An exchange was made back for the side-viewing scope. Duodendum - normal contours, though there was a diverticulum and a small papilla was directly in the center of the diverticulum deeply recessed. The opening, however, was fairly obvious and a sphincterotome inclined slightly towards an 11 o'clock orientation approached it. With the first insertion, slight flexion of the sphincterotome and insertion of the wire, the common duct was reached. A wire went high up into the right lobe. Dye injection demonstrated multiple filling defects and one dominant filling defect. Initial attempts to capture filling defects with the 2.5 cm trapezoid basket resulted in flakes and chips coming through. A switch was made to a 3 cm basket and this seemed more effective, especially when it was brought through with the wire still open. This trapped considerable amounts of material repeatedly. Most of it seemed like crumbly conglomerate that came through largely dispersed. A balloon was then used and brought through additional stone material. The basket and balloon was used sequentially 3 times. Eventually, balloon occlusion cholangiogram showed no residual material and injected dye drained within seconds. There had been trivial bleeding. IMPRESSION: 1. 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 Peptic history will be reviewed, though it is clear the patient is very . 2. Duodenal diverticulum. 3. Dilated biliary tree. 4. Status post sphincterotomy. 5. Common bile duct stones - extracted and a certain period of time on ursodiol prophylaxis will be considered. [id number]/[facility] #: [id number] [place]
[2019-05-18] MEDS: levETIRAcetam 1000MG IVPREMIX* 1,000 MG/100 ML BAG IVPB SCH (21:48)
[2019-05-18] MEDS: Famotidine IV* 10 MG/ML 2 ML (20 mg) IV SLOW PU SCH (21:48)
[2019-05-19] MEDS: ZOSYN 3.375 GM Q8H per EXTENDED INFUSION IVPB SCH ×2 (04:18)
[2019-05-19 08:06] VITALS: BP 116/57
[2019-05-19 08:20] LABS: ABS Lymphocytes 0.8 10^3/ul (1.0-4.8); ABS Monocytes 0.4 10^3/ul (0-0.8); ABS Neutrophils 8.7 10^3/ul (1.5-7.7); Hematocrit 27 % (35-47); Hemoglobin 9.3 g/dL (12.0-16.0); Lymphocyte % 8.2 %; Mean Corpuscular HGB Conc 34 g/dL (31-36); Mean Corpuscular Hemoglobin 30 pg (27-31); Mean Corpuscular Volume 88 fL (80-97); Mean Platelet Volume 8.6 fL (7.4-10.4); Platelet Count 316 10^3/uL (150-450); Red Cell Distribution Width 14 % (10-15); White Blood Count 9.9 10^3/uL (3.5-10.8)
[2019-05-19 08:42] LABS: Albumin 2.3 g/dL (3.2-5.2); Albumin/Globulin Ratio 0.8 (1-3); BUN/Creatinine Ratio 32.1 (8-20); Calcium 7.7 mg/dL (8.6-10.3); EGFR Non-African American 110.7 (>60); Potassium 3.9 mmol/L (3.5-5.0); Total Bilirubin 2.2 mg/dL (0.2-1.0); Total Protein 5.3 g/dL (6.4-8.9)
[2019-05-19] MEDS: Famotidine IV* 10 MG/ML 2 ML (20 mg) IV SLOW PU SCH (08:48)
[2019-05-19] MEDS: levETIRAcetam 1000MG IVPREMIX* 1,000 MG/100 ML BAG IVPB SCH (08:48)
[2019-05-19] MEDS ORDERED: Ursodiol CAP* 300 MG PO SCH (12:00)
--- NOTE | 2019-05-21 03:41 | DS ---
DISCHARGE SUMMARY: DATE OF ADMISSION: 05/18/19 DATE OF DISCHARGE: 05/19/19 PRIMARY CARE PROVIDER: Reed Santos MD ADMITTING PROVIDER: Rochelle Kenney MD CONSULTING CONTRACTS ADVISOR: Dr. Browne. OUTPATIENT ORTHOPEDIC DOCTOR: Dr. Heck. CHIEF COMPLAINT: Left hip pain. PRINCIPAL DIAGNOSES: 1. Choledocholithiasis with cholangitis. 2. Klebsiella pneumoniae urinary tract infection. HISTORY OF PRESENT ILLNESS AND HOSPITAL COURSE: Ms. Leung is an 79-year-old female with past medical history of hypertension, hyperlipidemia, seizure disorder, recent left hip ORIF on 04/22/2019. Please see [facility] for full details, but briefly, 2 days prior to admission, she started to have more pain in the left hip radiating to the medial thigh, came to the [facility] Emergency Room for evaluation. Incidentally her labs demonstrated cholestatic picture with total bilirubin of 3.3, direct bilirubin of 1.8, AST of 56, ALT of 80 and alk phos of 361. She had an acute hepatitis panel, which was negative. A CT of abdomen and pelvis showed cholelithiasis and filling defect within the common bile duct, probable calculus. Dilated common bile duct. Mild dilatation of the few intrahepatic biliary radicles. Common bile duct was noted to be 14 mm in diameter. She was started on Zosyn and Dr. Browne was able to do an ERCP. Last dose of Eliquis had been the night prior. There was findings of pyloric stenosis and dilated with a balloon, operatively a 12 mm dilation with a 3 atmospheres done and there was some bleeding. Sphincterotomy was performed and crumbly conglomerate of common bile duct stones were extracted and recommendation was to start ursodiol prophylaxis. The patient's initial white count had been 18.1 improved to 9.9 on hospital day #2. Her bilirubin fell to 2.2, alk phos angie to 416, AST angie to 67, ALT fell to 69. She had initial lipase of 116 on admission and initial CRP of 143. Urinalysis did ultimately grow Klebsiella pneumoniae greater than 100,000 that was nitrofurantoin and resistant to ampicillin (these results were back after the patient was discharged after being with set up with [facility]. She was hemodynamically stable without fevers, discharged on ciprofloxacin plus Flagyl. Blood cultures are now no growth x2 days. DISCHARGE MEDICATIONS: Include: 1. Tylenol 650 mg p.o. q.4 hours. 2. Eliquis 2.5 mg p.o. b.i.d. (will be held for the next 7 days postprocedure). 3. Ciprofloxacin 500 mg p.o. b.i.d. (new). 4. Docusate 180 mg p.o. b.i.d. 5. Keppra 1000 mg p.o. b.i.d. 6. Lisinopril 20 mg p.o. q.a.m. 7. Magnesium hydroxide 30 mg p.o. b.i.d. 8. Flagyl (metronidazole) 500 mg p.o. t.i.d. (new). 9. Multivitamin tab 1 tab each p.o. q.a.m. 10. MiraLAX 17 p.o. daily. 11. Senna 1 tab p.o. at bedtime p.r.n. 12. Simvastatin 20 mg p.o. at bedtime. 13. Tramadol 50 mg p.o. q.8 hours p.r.n. 14. Ursodiol 300 mg p.o. b.i.d. (new). FOLLOWUP: The patient was recommended to follow up with PCP, Dr. Santos in 7 to 10 days, Dr. Browne within the next 2 to 4 weeks given the history of pyloric stenosis and Dr. Heck as already scheduled. DISPOSITION: Home. CONDITION: Improved. DIET: Heart healthy unchanged. TIME SPENT ON DISCHARGE: Thirty-five minutes. [id number]/[facility] #: [id number] [facility]
== END 2019-05-19 16:20 | disposition home health service (06) | DRG 872 ==
LOC: ED 17:48 → MED 05-18 09:07
PROVIDERS: ADMIT Internal Medicine; ATTEND Internal Medicine
PROC: 0F798ZZ Dilation of Common Bile Duct, Via Natural or Artificial Opening Endoscopic (ICD-10-PCS; 2019-05-18)
PROC: 0D778ZZ Dilation of Stomach, Pylorus, Via Natural or Artificial Opening Endoscopic (ICD-10-PCS; 2019-05-18)
PROC: 0FC98ZZ Extirpation of Matter from Common Bile Duct, Via Natural or Artificial Opening Endoscopic (ICD-10-PCS; principal; 2019-05-18 14:30)
DX: A41.9 Sepsis, unspecified organism (principal); K80.30 Calculus of bile duct with cholangitis, unspecified, without obstruction; Q61.02 Congenital multiple renal cysts; K31.1 Adult hypertrophic pyloric stenosis; N39.0 Urinary tract infection, site not specified; I10 Essential (primary) hypertension; E78.5 Hyperlipidemia, unspecified; M19.90 Unspecified osteoarthritis, unspecified site; G40.909 Epilepsy, unspecified, not intractable, without status epilepticus; F41.9 Anxiety disorder, unspecified; M25.552 Pain in left hip; G89.18 Other acute postprocedural pain; K44.9 Diaphragmatic hernia without obstruction or gangrene; E78.00 Pure hypercholesterolemia, unspecified; M19.042 Primary osteoarthritis, left hand; M19.041 Primary osteoarthritis, right hand; H91.90 Unspecified hearing loss, unspecified ear; K59.09 Other constipation; K57.50 Diverticulosis of both small and large intestine without perforation or abscess without bleeding; B96.1 Klebsiella pneumoniae [K. pneumoniae] as the cause of diseases classified elsewhere; K83.8 Other specified diseases of biliary tract; Z16.11 Resistance to penicillins; Z82.49 Family history of ischemic heart disease and other diseases of the circulatory system; Z97.4 Presence of external hearing-aid; I25.2 Old myocardial infarction; Z79.01 Long term (current) use of anticoagulants
CPT/HCPCS: 36415; 74177; 74330; 80053; 80074; 80329; 81003; 81015; 82248; 83605; 83690; 85025; 86140; 87040; 87077; 87086; 87186; 99285; A9270-GY; C1769; G0480; G8978-GP-CI; G8979-GP-CI; G8980-GP-CI; J1100; J1953; J2250; J2405; J2543; J2704; J3010; Q9967

== ENCOUNTER 2019-07-12 13:02 | Inpatient (IN) | payer MEDICARE ==
[~2019-07-12 13:02] MED LIST changes: -Acetaminophen TAB* 325 MG PO PRN; -Buffered Lidocaine 0.9% SYRIN* 5 ML/SYR SYRINGE INTRADERM ONE; +Buffered Lidocaine 1% SYRIN* 1 ML/SYRINGE INTRADERM ONE; +Dexamethasone IV* 4 MG/ML 1 ML (4 MG) IV SLOW PU ONE; +Famotidine IV* 10 MG/ML 2 ML (20 mg) IV ONE; +Gabapentin CAP(*) 300 MG PO ONE; +Lactated Ringers 1000 ML Bag* 1,000 ML IV SCH; +celeCOXIB CAP* 100 MG PO ONE
--- OUTSIDE RECORDS SUMMARY | 2019-07-12 13:06 | XMS REPORT | Continuity of Care Document ---
:1940 External Reference #:[id number] Author Name Cat Boogie M.D. (transmitted by agent of provider Dinesh Hemphill) Address [address] [place] [address] Care Team Providers Name Role Phone Reed Santos MD - Family Medicine Care Team Information Farm General Manager [phone] Problems Active Problems Provider Date Localization-related epilepsy Michael Flood M.D. Onset: 09/01/2015 Displaced fracture of base of neck of left Jim Heck MD Onset: 05/29/2019 femur, subsequent encounter for closed fracture with routine healing Pain due to internal orthopedic prosthetic Jim Heck MD Onset: 05/29/2019 devices, implants and grafts, subsequent encounter Social History Type Date Description Comments Sex Unknown ETOH Use Occasionally Consumed Alcoholic Beverages Tobacco Use Start: Unknown Patient has never smoked Recreational Drug Use Denies Drug Use Smoking Status Reviewed: 06/11/19 Patient has never smoked Allergies, Adverse Reactions, Alerts Description No Known Drug Allergies Medications Active Medications SIG Qnty Indications Ordering Date Provider Ursodiol one twice a day 120caps Sukhdeep Deutsch 05/20/2019 300mg Capsules MD Emelyn Browne 1 twice a day 180tabs Michael Salgado 03/21/2013 1000mg Tablets Denzel Flood Lisinopril 1 tab po daily Unknown 20mg Tablets Simvastatin 1 tab po qhs Unknown 20mg Tablets Multivitamins 1 capsule daily 90caps Unknown Capsules Oxycodone HCL Reed Santos MD 5mg Tablets History Medications Tramadol HCL 1 tablet by mouth 30tabs Jim Heck MD 04/27/2019 - 50mg every 4-6 hours as 05/29/2019 Tablets needed pain Eliquis take 1 tab every 84tabs Jim Heck MD 04/26/2019 - 2.5mg Tablets 12 hours x 6 weeks 05/29/2019 Immunizations Description No Information Available Vital Signs Date Vital Result Comment 06/11/2019 3:33pm Height 64 inches 5'4" Weight 114.00 lb Heart Rate 104 /min BP Systolic 130 mmHg BP Diastolic 84 mmHg O2 % BldC Oximetry 98 % BMI (Body Mass Index) 19.6 kg/m2 05/30/2019 11:58am Height 64 inches 5'4" Weight 128.00 lb Heart Rate 105 /min BP Systolic 118 mmHg BP Diastolic 72 mmHg Respiratory Rate 16 /min Pain Level 7 BMI (Body Mass Index) 22.0 kg/m2 Results Test Date Facility Test Result H/L Range Note Inr/Protime 07/11/2019 [facility] Inr 0.97 Normal 0.82-1.09 1 , [address] [place] [address] [phone] Laboratory test 07/11/2019 [facility] Partial 31.7 seconds Normal 26.0-38.[address] [place] [address] PTT [phone] Comp Metabolic 07/11/2019 [facility] Sodium 136 mmol/L Normal 135-145 Panel [address] [place] [address] [phone] Potassium 4.2 mmol/L Normal 3.5-5.0 Chloride 101 mmol/L Normal 101-111 Co2 Carbon Dioxide 28 mmol/L Normal 22-32 Anion Gap 7 mmol/L Normal 2-11 Glucose 96 mg/dL Normal 70-100 Blood Urea Nitrogen 14 mg/dL Normal 6-24 Creatinine 0.74 mg/dL Normal 0.51-0.95 BUN/Creatinine Ratio 18.9 Normal 8-20 Calcium 10.0 mg/dL Normal 8.6-10.3 Total Protein 6.4 g/dL Normal 6.4-8.9 Albumin 3.9 g/dL Normal 3.2-5.2 Globulin 2.5 g/dL Normal 2-4 Albumin/Globulin Ratio 1.6 Normal 1-3 Total Bilirubin 0.70 mg/dL Normal 0.2-1.0 Alkaline Phosphatase 66 U/L Normal 34-104 Alt 9 U/L Normal 7-52 Ast 18 U/L Normal 13-39 Egfr Non- 75.3 >60 Egfr 91.1 >60 3 Stool Occult 06/21/2019 [facility] Stool Occult SEE RESULT 4 Blood, Screen [address] Blood, [place] [address] Screen [phone] Comp Metabolic 06/19/2019 [facility] Sodium 137 mmol/L Normal 135-[address] [place] [address] [phone] Potassium 4.4 mmol/L Normal 3.5-5.0 Chloride 101 mmol/L Normal 101-111 Co2 Carbon Dioxide 26 mmol/L Normal 22-32 Anion Gap 10 mmol/L Normal 2-11 Glucose 88 mg/dL Normal 70-100 Blood Urea Nitrogen 8 mg/dL Normal 6-24 Creatinine 0.72 mg/dL Normal 0.51-0.95 BUN/Creatinine Ratio 11.1 Normal 8-20 Calcium 9.7 mg/dL Normal 8.6-10.3 Total Protein 6.6 g/dL Normal 6.4-8.9 Albumin 4.0 g/dL Normal 3.2-5.2 Globulin 2.6 g/dL Normal 2-4 Albumin/Globulin Ratio 1.5 Normal 1-3 Total Bilirubin 0.90 mg/dL Normal 0.2-1.0 Alkaline Phosphatase 84 U/L Normal 34-104 Alt 9 U/L Normal 7-52 Ast 17 U/L Normal 13-39 Egfr Non- 77.7 >60 Egfr 94.1 >60 5 CBC Auto 06/19/2019 [facility] White Blood 9.2 10^3/uL Normal 3.5-10.[address] [place] [address] [phone] Red Blood Count 4.14 10^6/uL Normal 3.70-4.87 Hemoglobin 12.1 g/dL Normal 12.0-16.0 Hematocrit 38 % Normal 35-47 Mean Corpuscular Volume 91 fL Normal 80-97 Mean Corpuscular Hemoglobin 29 pg Normal 27-31 Mean Corpuscular HGB Conc 32 g/dL Normal 31-36 Red Cell Distribution Width 15 % Normal 10-15 Platelet Count 231 10^3/uL Normal 150-450 Mean Platelet Volume 10.6 fL High 7.4-10.4 Abs Neutrophils 4.5 10^3/uL Normal 1.5-7.7 Abs Lymphocytes 2.9 10^3/uL Normal 1.0-4.8 Abs Monocytes 1.2 10^3/uL High 0-0.8 Abs Eosinophils 0.4 10^3/uL Normal 0-0.6 Abs Basophils 0.1 10^3/uL Normal 0-0.2 Abs Nucleated RBC 0.0 10^3/uL Granulocyte % 49.1 % Lymphocyte % 31.6 % Monocyte % 13.2 % Eosinophil % 4.9 % Basophil % 1.2 % Nucleated Red Blood Cells % 0.0 1 DISPLACED FRACTURE OF BASE OF NECK OF LEFT FEMUR, 2 Standard intensity warfarin therapeutic range: 2.0-3.0 High intensity warfarin therapeutic range: 2.5-3.5 3 Because ethnic data is not always readily available, this report includes an eGFR for both -Americans and non- Americans. The National Kidney Disease Education Program (NKDEP) does not endorse the use of the MDRD equation for patients that are not between the ages of 18 and 70, are , have extremes of body size, muscle mass, or nutritional status, or are non- or non-. According to the National Kidney Foundation, irrespective of diagnosis, the stage of the disease is based on the level of kidney function: Stage Description GFR(mL/min/1.73 m(2)) 1 Kidney damage with normal or decreased GFR 90 2 Kidney damage with mild decrease in GFR 60-89 3 Moderate decrease in GFR 30-59 4 Severe decrease in GFR 15-29 5 Kidney failure <15 (or dialysis) 4 SEE RESULT BELOW Name: LEUNGDENIA : [address]: Sukhdeep Browne MD Acct: [id number] Unit: [id number] AGE: 79 Location: [facility] Re06/21/19 SEX: F Status: REG REF SPEC: [id number] YENNI: 06/21/19-[address]: Sukhdeep Browne MD REQ: [id number] RECD: 06/21/19 STATUS: COMP _ SOURCE: STOOL SPDESC: ORDERED: Occult Bl, Dennis COMMENTS: 06/19/19 2100 06/20/19 19006/21/191319 Procedure Result Reported Site Stool Occult Blood (1) Final 06/21/19- 2007 [facility] Stool Occult Blood Negative Collection Date (1) 06/19/19 Stool Occult Blood (2) Final 06/21/19- 2007 ML Stool Occult Blood Negative Collection Date (2) 06/20/19 Stool Occult Blood (3) Final 06/21/19- 2007 ML Stool Occult Blood Negative Collection Date (3) 06/21/19 * [facility] - Main Lab . END OF REPORT DEPARTMENT OF PATHOLOGY, [address] [place] [address] Khris Talamantes M.D. Director [facility] # [id number] 5 Because ethnic data is not always readily available, this report includes an eGFR for both -Americans and non- Americans. The National Kidney Disease Education Program (NKDEP) does not endorse the use of the MDRD equation for patients that are not between the ages of 18 and 70, are , have extremes of body size, muscle mass, or nutritional status, or are non- or non-. According to the National Kidney Foundation, irrespective of diagnosis, the stage of the disease is based on the level of kidney function: Stage Description GFR(mL/min/1.73 m(2)) 1 Kidney damage with normal or decreased GFR 90 2 Kidney damage with mild decrease in GFR 60-89 3 Moderate decrease in GFR 30-59 4 Severe decrease in GFR 15-29 5 Kidney failure <15 (or dialysis) Procedures Date Code Description Status 05/18/2019 25193 Ercp W/Endoscopic Destruction, Lithotripsy Of Stone(S) Completed 05/18/2019 01342 Ercp W/Sphincterotomy/Papillotomy Completed 05/18/2019 25167 Endoscopy Upper GI Dilate Gastric Outlet For Obstruction Completed 04/22/2019 63109 Percutaneous TX Of Femoral FX Completed Medical Devices Description No Information Available Encounters Type Date Location Provider Dx Diagnosis Office Visit 06/11/2019 [facility] Gastroenterology Sukhdeep Willingham80.37 Calculus of bile 3:15p MD Pavan duct w acute and chronic cholangitis w obst K31.1 Adult hypertrophic pyloric stenosis K57.10 Dvrtclos of sm int w/o perforation or abscess w/o bleeding S72.042D Disp fx of base of nk of l femr, 7thD Office 05/19/2019 [facility] Gastroenterology Sukhdeep Willingham80.42 Calculus of bile Visit 7:00a MD Pavan duct w acute cholecystitis w/o obstruction Office 05/19/2019 [facility] Manpreet Santa MD K80.37 Calculus of bile Visit 9:25a Assoc[facility] Hospitalists duct w acute and chronic cholangitis w obst N39.0 Urinary tract infection, site not specified B96.1 Klebsiella pneumoniae as the cause of diseases classd elswhr Office Visit 05/18/2019 [facility] Gastroenterology Sukhdeep Deutsch K80.50 Calculus of bile 7:00a MD Pavan duct w/o cholangitis or cholecyst w/o obst Office Visit 05/18/2019 [facility] Rochelle K80.37 Calculus of bile 9:25a Assoc,pc Hospitalists Denzel Kenney duct w acute and chronic cholangitis w obst M25.552 Pain in left hip Office Visit 04/24/2019 [facility] Nikki S72.012A Unsp intracapsular 8:56a Assoc,pc Miguel, MAINFRAME PROGRAMMER ANALYST fracture of left Hospitalists femur, init for clos fx N17.9 Acute kidney failure, unspecified I10 Essential (primary) hypertension Office Visit 04/23/2019 8:55a [facility] Nikki Miguel, I10 Essential Assoc,pc MAINFRAME PROGRAMMER ANALYST (primary) Hospitalists hypertension E78.5 Hyperlipidemia, unspecified Office Visit 04/22/2019 8:55a [facility] Nikki Miguel, S72.002A Fracture of Assoc,pc MAINFRAME PROGRAMMER ANALYST unsp part of Hospitalists neck of left femur, init N17.9 Acute kidney failure, unspecified I10 Essential (primary) hypertension G40.909 Epilepsy, unsp, not intractable, without status epilepticus Office Visit 04/21/2019 8:55a [facility] Salma Dill, S72.042A Disp fx of leo King MD base of neck Hospitalists of left femur, init for clos fx I10 Essential (primary) hypertension E78.5 Hyperlipidemia, unspecified W19.xxxA Unspecified fall, initial encounter Office Visit 04/21/2019 1:16p Orthopedic Jim Heck, S72.045A Nondisp fx of Services Of MD farah of neck C.M.A. of left femur, init for clos fx W01.0xxA Fall same lev from slip/trip w/o strike against object, init Assessments Date Code Description Provider 06/11/2019 K80.37 Calculus of bile duct with acute and chronic uSkhdeep Browne MD cholangitis wit 06/11/2019 K31.1 Adult hypertrophic pyloric stenosis Sukhdeep Browne MD 06/11/2019 K57.10 Diverticulosis of small intestine without Sukhdeep Browne MD perforation or abscess without bleeding 06/11/2019 S72.042D Displaced fracture of base of neck of left Sukhdeep Browne MD femur, subsequent 05/30/2019 T84.84xA Pain due to internal orthopedic prosthetic Cat Boogie M.D. devices, implants 05/30/2019 S72.042A Displaced fracture of base of neck of left Cat Boogie M.D. femur, initial en 05/30/2019 S72.012A er for closed fracture Cat Boogie M.D. 05/30/2019 M25.552 Pain in left hip Cat Boogie M.D. 05/29/2019 S72.042D Displaced fracture of base of neck of left Jim Heck MD femur, subsequent 05/29/2019 T84.84xD Pain due to internal orthopedic prosthetic Jim Heck MD devices, implants 05/19/2019 K80.37 Calculus of bile duct with acute and chronic Manpreet Santa MD cholangitis wit 05/19/2019 N39.0 Urinary tract infection, site not specified Manpreet Santa MD 05/19/2019 B96.1 Klebsiella pneumoniae [K. pneumoniae] as the Manpreet Santa MD cause of diseases classified elsewhere 05/19/2019 K80.42 Calculus of bile duct w acute cholecystitis Sukhdeep Browne MD w/o obstruction 05/18/2019 K31.1 Adult hypertrophic pyloric stenosis Sukhdeep Browne MD 05/18/2019 K80.50 Calculus of bile duct without cholangitis or Sukhdeep Browne MD cholecystitis without obstruction 05/18/2019 K57.10 Diverticulosis of small intestine without Sukhdeep Browne MD perforation or abscess without bleeding 05/18/2019 K80.37 Calculus of bile duct with acute and chronic Rochelle Anne Marie, M.D. cholangitis wit 05/18/2019 K83.8 Other specified diseases of biliary tract Sukhdeep Browne MD 05/18/2019 M25.552 Pain in left hip Rochelle Kenney M.D. 05/08/2019 S72.042D Displaced fracture of base of neck of left Jim Heck MD femur, subsequent 04/24/2019 S72.042D Displaced fracture of base of neck of left CRISTA Infante femur, subsequent 04/24/2019 S72.012A Unsp intracapsular fracture of left femur, Nikki Miguel , MAINFRAME PROGRAMMER ANALYST init for clos fx 04/24/2019 N17.9 Acute kidney failure, unspecified Nikki Miguel, MAINFRAME PROGRAMMER ANALYST 04/24/2019 I10 Essential (primary) hypertension Nikki Miguel, MAINFRAME PROGRAMMER ANALYST 04/23/2019 I10 Essential (primary) hypertension Nikki Miguel, MAINFRAME PROGRAMMER ANALYST 04/23/2019 E78.5 Hyperlipidemia, unspecified Nikki Miguel, MAINFRAME PROGRAMMER ANALYST 04/22/2019 S72.002A Fracture of unsp part of neck of left femur, Nikki Miguel, MAINFRAME PROGRAMMER ANALYST init 04/22/2019 W01.0xxA Fall same lev from slip/trip w/o strike Jim Heck MD against object, init 04/22/2019 N17.9 Acute kidney failure, unspecified Nikki Miguel, MAINFRAME PROGRAMMER ANALYST 04/22/2019 S72.042A Disp fx of base of neck of left femur, init Jim Heck MD for clos fx 04/22/2019 I10 Essential (primary) hypertension Nikki Miguel, MAINFRAME PROGRAMMER ANALYST 04/22/2019 G40.909 Epilepsy, unsp, not intractable, without Nikki Miguel, MAINFRAME PROGRAMMER ANALYST status epilepticus 04/21/2019 S72.042A Disp fx of base of neck of left femur, init Salma Cortés MD for clos fx 04/21/2019 I10 Essential (primary) hypertension Salma Cortés MD 04/21/2019 E78.5 Hyperlipidemia, unspecified Salma Cortés MD 04/21/2019 W19.xxxA Unspecified fall, initial encounter Salma Cortés MD 04/21/2019 S72.045A Nondisp fx of base of neck of left femur, Jim Heck MD init for clos fx 04/21/2019 W01.0xxA Fall same lev from slip/trip w/o strike Jim Heck MD against object, init Plan of Treatment Future Appointment(s):07/12/2019 3:30 pm - DANIEL Lynch at [facility].07/12/2019 3:30 pm - Krzysztof Puri PA-C at [facility].07/23/2019 2:15 pm - Cat Boogie M.D. at [facility].07/12/2019 3:30 pm - Cat Boogie M.D. at [facility].06/11/2019 - Sukhdeep Browne MDK80.37 Calculus of bile duct w acute and chronic cholangitis w obstFollow up:Please call that ursodiol sent in. Did Dr Santos restart her Eliquis or other blood thinner? Try to get Dr Santos's 05/30/19 note. I did not mention other tests that should be done as she gets prepped for surgery. It has now been two weeks since Dr Santos did her f/u blood work and with her situation things can change. Will need again a f/u chem profile, CBC and stool hemoccult - all should be doneat the hospital - not [facility].K31.1 Adult hypertrophic pyloric stenosisFollow up: Please call that ursodiol sent in. Did Dr Santos restart her Eliquis or other blood thinner? Try to get Dr Santos's 05/30/19 note. I did not mention other tests that should be done as she gets prepped for surgery. It has now been two weeks since Dr Santos did her f/u blood work and with her situation things can change. Will need again a f/u chem profile, CBC and stool hemoccult - all should be doneat the hospital - not [facility].K57.10 Dvrtclos of sm int w/o perforation or abscess w/o bleedingFollow up:Please call that ursodiol sent in. Did Dr Santos restart her Eliquis or other blood thinner? Try to get Dr Santos's note. I did not mention other tests that should be done as she gets prepped for surgery. It has now been two weeks since Dr Santos did her f/u blood work and with her situation things can change. Will need again a f/u chem profile, CBC and stool hemoccult - all should be doneat the hospital - [facility].S72.042D Disp fx of base of of l femr, 7thDFollow up:Please call that ursodiol sent in. Did Dr Santos restart her Eliquis or other blood thinner? Try to get Dr Santos's 05/30/19 note. I did not mention other tests that should be done as she gets prepped for surgery. It has now been two weeks since Dr Santos did her f/u blood work and with her situation things can change. Will need again a f/u chem profile, CBC and stool hemoccult - all should be doneat the hospital - [facility]. Functional Status Description No Information Available Mental Status Description No Information Available Referrals Description No Information Available
[2019-07-12] MEDS ORDERED: Dexamethasone IV* 4 MG/ML 1 ML (4 MG) ONE (13:35)
[2019-07-12] MEDS ORDERED: celeCOXIB CAP* 100 MG ONE (13:35)
[2019-07-12] MEDS ORDERED: Buffered Lidocaine 1% SYRIN* 1 ML/SYRINGE INTRADERM ONE (13:36)
[2019-07-12] MEDS ORDERED: Famotidine IV* 10 MG/ML 2 ML (20 mg) ONE (13:36)
[2019-07-12] MEDS ORDERED: Gabapentin CAP(*) 300 MG ONE (13:36)
[2019-07-12] MEDS ORDERED: ceFAZolin 2 GM in NS PREMIX(*) 2 GM/100 ML BAG IVPB ONE (13:36)
[2019-07-12] MEDS ORDERED: Bupivacaine 0.5% SDV PF* 30ML VIAL ONE (14:41)
[2019-07-12] MEDS ORDERED: Propofol* 500 MG/50 ML BTL ONE (14:41)
[2019-07-12] MEDS ORDERED: fentaNYL* 50 MCG/ML 2 ML VIAL (100 MCG VIAL) ONE (14:42)
[2019-07-12] MEDS ORDERED: Midazolam* 1 MG/ML 2 ML VIAL (2 MG) ONE (14:42)
[2019-07-12] MEDS ORDERED: Phenylephrine 10 MG/ML VIAL* 1 ML VIAL ONE (16:06)
[2019-07-12] MEDS ORDERED: diPHENhydraMINE IV* 50 MG/ML 1 ml VIAL (BENADRYL) IV PRN (17:28)
[2019-07-12] MEDS ORDERED: Polyethylene Glycol 3350* 17 GM PACKET PO PRN (17:28)
[2019-07-12] MEDS ORDERED: diPHENhydraMINE PO* 25 MG PO PRN (17:28)
[2019-07-12] MEDS ORDERED: Temazepam CAP* 15 MG PO PRN (17:28)
[2019-07-12] MEDS ORDERED: Cyclobenzaprine TAB* 10 MG PO PRN (17:28)
[2019-07-12] MEDS ORDERED: Magnesium Hydroxide LIQ* 30 ML UDC PO PRN (17:28)
[2019-07-12] MEDS ORDERED: oxyCODONE/Acetamin 5/325 MG* TAB PO PRN ×2 (17:28)
[2019-07-12] MEDS ORDERED: Ondansetron ODT TAB* 4 MG PO PRN (17:28)
[2019-07-12] MEDS ORDERED: Morphine INJ* 2 MG/ML 1 ML SYRINGE (TWO MG - NEW SYRINGE VERSION) IV PRN (17:28)
[2019-07-12] MEDS ORDERED: Ondansetron INJ* 2 MG/ML VIAL IV PRN (17:28)
[2019-07-12] MEDS ORDERED: traMADol TAB* 50 MG PO SCH (18:00)
--- NOTE | 2019-07-12 21:12 | OP ---
OPERATIVE NOTE: DATE OF OPERATION: 07/12/19 - Inpatient, room [place] [address]- DATE OF : 36 SURGEON: Cat Boogie M.D. TEACHER OF GIFTED STUDENTS: CRISTA Infante. ANESTHESIOLOGIST: Dr. Sanford. ANESTHESIA: Spinal epidural. 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 OPERATIVE PROCEDURE: Conversion of left hip cannulated screw with failure to left total hip arthroplasty. COMPLICATIONS: None. ESTIMATED BLOOD LOSS: 350 cc. SPECIMEN: Three cannulated screws were sent to Pathology. Multiple culture swabs were sent to Micro for culture and sensitivity, using fluid from the left hip joint. HARDWARE USED: This was a left total hip arthroplasty hardware from [employer]. For the cup, a 50D Trident II Tritanium multihole acetabular shell, two 20 mm screws were used and MDM cementless liner 38D was used. For the stem, a [place] pentecostalism modular hip system was used. For the distal stem, a 155 x 15 mm distal stem. For the body, a 19 mm +0 proximal body. For the head, a 22.2 +0 v40 femoral head with a 22.2/38D MDM polyethylene insert liner. BRIEF HISTORY/INDICATIONS: Ms Leung is an 79-year-old female, who had a traumatic fall with femoral neck fracture treated previously by Dr. Heck. Unfortunately, the cannulated screw fixation failed and she developed avascular necrosis. The patient had pain and extreme shortening of the leg with obvious hardware failure and posttraumatic arthritis of the left hip. Due to inability to ambulate and decreased quality of life, she elected to have conversion of the cannulated screw to left total hip arthroplasty. Informed consent was obtained from the patient. She understood the risks of surgery included, but were not limited to, bleeding, infection, damage to nearby structures, continued pain, need for further surgery, intraoperative fracture, nerve palsy, hardware failure or loosening, dislocation, leg length discrepancy, stroke, heart attack, blood clot, and . She wished to proceed. The patient understood that the likelihood of intraoperative fracture was high and she could possibly need additional implant and/or revision implants. INTRAOPERATIVE FINDINGS: Intraoperatively, the patient's cannulated screws were poorly fixed. She had extreme avascular necrosis with a nonunion of the femoral neck fracture. The femoral neck fracture did extend quite distally on the neck into the calcar region. She was noted to have extreme bone loss of the proximal femur necessitating a revision pentecostalism stem with distal fixation. The patient was noted to have significant osteopenia of her bone. She did have moderate-to- severe arthritis of the acetabulum. DESCRIPTION OF PROCEDURE: Ms. Leung was identified in the preanesthesia unit. Her left lower extremity was marked as the correct operative side. Informed consent was signed and placed in the chart. The patient was taken to the operating room and placed under anesthesia. A Araujo catheter was placed and there was minimal urine obtained. Dr. Lawrence was kind enough to irrigate the Araujo catheter and reported that there was urine in the bladder, although the patient was significantly dehydrated. She was given appropriate fluids. She was placed in the right lateral decubitus position on the peg board. All bony prominences were well padded. The left lower extremity was prepped and draped in the usual sterile fashion. Preop time-out was made to correctly identify the patient, side, and site. Appropriate perioperative antibiotics were given within 1 hour of incision. A posterolateral hip incision was made and distally incorporated her prior incision. Dissection was made down to the lateral fascial layer. Lateral fascial layer was incised in line with the skin incision. There was a significant amount of scar tissue around the cannulated screw, which was visibly loose and poorly fixed. The piriformis and conjoint tendons were identified and elevated off the posterolateral femur. These were tagged with #5 Ethibond. Next, electrocautery was used to make a capsular flap and this was tagged with #5 Ethibond. The hip was carefully dislocated. The hip was then reduced. The recannulated screws were easily removed. These screw tracks were debrided with a curette. Next, the hip was once again dislocated. The femoral neck fracture was a nonunion and they essentially fell off immediately. A cleanup cut of the femoral neck was made. At this point, it was noted that the femoral neck fracture involved the calcar region of the proximal femur and significant amount of the femoral neck distally. The femur was carefully retracted anteriorly. Appropriate retractors were placed around the acetabulum. The remaining labrum was carefully removed around the acetabular rim. Acetabulum was sequentially reamed up to a size 50. A 50 trial had excellent fit and stability. A 50D Trident Tritanium multi- hole shell was chosen because of the patient's extreme osteopenia. This was impacted into the acetabulum without difficulty. The cup was stable with appropriate anteversion and abduction angle. Two 20-mm screws were placed for extra stability. An MDM cementless liner 38D was chosen and impacted into the acetabulum. Next, attention was turned to preparation of the proximal femur. It was determined that the primary implant Accolade II could not be used. It was determined that the proximal femoral bone loss made this for campbell implant. I decided to do pentecostalism of revision stem with distal fixation. The intramedullary canal was sequentially reamed up to a size 15. The 15 trial stem had excellent fit. The 155 x 15 mm Taoism Modular hip system distal stem was chosen and impacted into the femoral canal. This had excellent fit and it was advanced in appropriate length. Multiple intraoperative x-rays were obtained to ensure that there was no periprosthetic fracture around the implant placed. Next, proximal reaming was performed and a 19 +0 proximal Taoism Modular body was chosen. This was impacted and put into place. Appropriate torque was placed. Appropriate anteversion was placed. A 22.2 +0 femoral head trial with MDM liner insert trial was placed. The hip was reduced and taken through range of motion. Soft tissue tension was appropriate. Leg lengths were deemed to be appropriate. The hip was stable in all positions. The hip was carefully dislocated. The femoral head trials were removed. Final implants chosen were 22.2 +0 LFIT V40 femoral head with a 22.2/38D MDM X3 liner. This was impacted on to the femoral neck. The hip was reduced and taken through range of motion. The hip was stable in all positions. The hip was copiously irrigated with sterile saline. The rest of the incision was closed in a layered fashion using 0 and 2-0 Vicryls. Skin was closed using running 3-0 Monocryl and Dermabond. Sterile Adaptic, 4x4s, and paper tape were used to cover the incision. The patient's anesthesia was reversed without difficulty. She was taken to the PACU in stable condition. Intended weightbearing will be weightbearing as tolerated. Intended DVT prophylaxis will be Eliquis. [id number]/CPS #: [id number]/CPS #: [id number] [facility] HOSPITALWiliam
[2019-07-12] MEDS: Lactated Ringers 1000 ML Bag* 1,000 ML IV SCH (21:35)
--- NOTE | 2019-07-12 21:54 | OP ---
OPERATIVE REPORT: ADDENDUM: INDICATIONS: An 79-year-old female, who had a traumatic treated previously by Dr. Heck. Unf ortunately, the cannulated screw fixation failed and she developed avascular necrosis. 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 Due to inability to ambulate and decreased quality of life, she elected to have conv ersion of the cannulated screw to left total hip arthroplasty. Informed consent was obtained from th e patient. She understood the risks of surgery included, but were not limited to, bleeding, infectio n, damage to nearby structures, continued pain, need for further surgery, intraoperative fracture, ne rve palsy, hardware failure or loosening, dislocation, leg length discrepancy, stroke, heart attack, blood clot, and . She wished to proceed. The patient understood that the likelihood of intraop erative fracture was high and she could possibly need additional implant and/or revision implants. INTRAOPERATIVE FINDINGS: Intraoperatively, the patient's cannulated screws were poorly fixed. 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 The femoral neck fractur e did extend quite distally on the neck into the calcar region. She was noted to have extreme bone l oss of the proximal femur necessitating a revision anglican stem with distal fixation. The patien t was noted to have significant osteopenia of her bone. She did have moderate-to- severe arthritis o f the acetabulum. DESCRIPTION OF PROCEDURE: Ms. Leung was identified in the preanesthesia unit. Her left lower extrem ity was marked as the correct operative side. Informed consent was signed and placed in the chart. The patient was taken to the operating room and placed under anesthesia. A Araujo catheter was placed and there was minimal urine obtained. Dr. Lawrence was kind enough to irrigate the Araujo catheter and reported that there was urine in the bladder, although the patient was significantly dehydrated. She was given appropriate fluids. She was placed in the right lateral decubitus position on the peg boa rd. All bony prominences were well padded. The left lower extremity was prepped and draped in the u sual sterile fashion. Preop time-out was made to correctly identify the patient, side, and site. Ap propriate perioperative antibiotics were given within 1 hour of incision. A posterolateral hip incision was made and distally incorporated her prior incision. Dissection was made down to the lateral fascial layer. Lateral fascial layer was incised in line with the skin inci moy. There was a significant amount of scar tissue around the cannulated screw, which was visibly l oose and poorly fixed. The piriformis and conjoint tendons were identified and elevated off the posterolateral femur. These were tagged with #5 Ethibond. Next, electrocautery was used to make a capsular flap and this was ta gged with #5 Ethibond. The hip was carefully dislocated. The hip was then reduced. The recannulate d screws were easily removed. These screw tracks were debrided with a curette. Next, the hip was on ce again dislocated. The femoral neck fracture was a nonunion and they essentially fell off immediat madelyn. A cleanup cut of the femoral neck was made. At this point, it was noted that the femoral neck fracture involved the calcar region of the proximal femur and significant amount of the femoral neck distally. The femur was carefully retracted anteriorly. Appropriate retractors were placed around the acetabul um. The remaining labrum was carefully removed around the acetabular rim. Acetabulum was sequential ly reamed up to a size 50. A 50 trial had excellent fit and stability. A 50D Trident Tritanium mult i-hole shell was chosen because of the patient's extreme osteopenia. This was impacted into the acet abulum without difficulty. The cup was stable with appropriate anteversion and abduction angle. Two 20-mm screws were placed for extra stability. An MDM cementless liner 38D was chosen and impacted i nto the acetabulum. Next, attention was turned to preparation of the proximal femur. It was determined that the primary implant Accolade II could not be used. It was determined that the proximal femoral bone loss made th is for campbell implant. I decided to do anglican of revision stem with distal fixation. The intramed ullary canal was sequentially reamed up to a size 15. The 15 trial stem had excellent fit. The 155 x 15 mm Cheondoism Modular hip system distal stem was chosen and impacted into the femoral canal. T his had excellent fit and it was advanced in appropriate length. Multiple intraoperative x-rays were obtained to ensure that there was no periprosthetic fracture around the implant placed. Next, proxi mal reaming was performed and a 19 +0 proximal Cheondoism Modular body was chosen. This was impacte d and put into place. Appropriate torque was placed. Appropriate anteversion was placed. A 22.2 +0 femoral head trial with MDM liner insert trial was placed. The hip was reduced and taken through ra nge of motion. Soft tissue tension was appropriate. Leg lengths were deemed to be appropriate. The hip was stable in all positions. The hip was carefully dislocated. The femoral head trials were removed. Final implants chosen were 22.2 +0 LFIT V40 femoral head with a 22.2/38D MDM X3 liner. This was impacted on to the femoral neck. The hip was reduced and taken through range of motion. The hip was stable in all positions. The hip was copiously irrigated with sterile saline. The rest of the incision was closed in a layere d fashion using 0 and 2-0 Vicryls. Skin was closed using running 3-0 Monocryl and Dermabond. Steril e Adaptic, 4x4s, and paper tape were used to cover the incision. The patient's anesthesia was revers ed without difficulty. She was taken to the PACU in stable condition. Intended weightbearing will b e weightbearing as tolerated. Intended DVT prophylaxis will be Eliquis. [id number]/[facility] #: [id number]
[2019-07-12] MEDS: Docusate CAP* 100 MG PO SCH (22:41)
[2019-07-12] MEDS: Atorvastatin* 10 MG TAB PO SCH (22:41)
[2019-07-12] MEDS: levETIRAcetam TAB* 500 MG PO SCH (22:42)
[2019-07-12] MEDS: Ursodiol CAP* 300 MG PO SCH (22:42)
[2019-07-12] MEDS: oxyCODONE TAB* 5 MG TAB PO PRN (22:42)
[2019-07-12] MEDS: Magnesium Hydroxide LIQ* 30 ML UDC PO SCH (22:43)
[2019-07-12] MEDS: Acetaminophen TAB* 325 MG PO SCH (22:43)
[2019-07-12] MEDS: ceFAZolin 1 GM ADVAN(*) 1 GM in NS 0.9% 50 ML* 50 ML IVPB SCH (23:39)
[2019-07-12 23:56] LABS: Urine Appearance Cloudy; Urine Bacteria Absent (Absent); Urine Bilirubin Negative (Negative); Urine Blood Negative (Negative); Urine Color Yellow; Urine Glucose Negative (Negative); Urine Ketones Negative (Negative); Urine Nitrite Negative (Negative); Urine Protein Negative (Negative); Urine Red Blood Cell Absent (Absent); Urine Specific Gravity 1.016 (1.010-1.030); Urine Urobilinogen Negative (Negative); Urine White Blood Cell 3+(>20/hpf) (Absent)
[2019-07-13] MEDS: oxyCODONE TAB* 5 MG TAB PO PRN ×2 (04:19→13:20)
[2019-07-13] MEDS: Acetaminophen TAB* 325 MG PO SCH ×3 (04:31→22:10)
[2019-07-13 06:09] LABS: Hematocrit 31 % (35-47); Hemoglobin 10.2 g/dL (12.0-16.0); Mean Platelet Volume 8.9 fL (7.4-10.4); Platelet Count 181 10^3/uL (150-450)
[2019-07-13 06:27] LABS: BUN/Creatinine Ratio 18.8 (8-20); Calcium 8.6 mg/dL (8.6-10.3); EGFR African American 77.7 (>60); EGFR Non-African American 64.2 (>60); Potassium 4.9 mmol/L (3.5-5.0)
[2019-07-13] MEDS: Lactated Ringers 1000 ML Bag* 1,000 ML IV SCH (07:52)
[2019-07-13] MEDS: ceFAZolin 1 GM ADVAN(*) 1 GM in NS 0.9% 50 ML* 50 ML IVPB SCH ×2 (07:52→16:35)
[2019-07-13] MEDS: levETIRAcetam TAB* 500 MG PO SCH ×2 (08:03→22:10)
[2019-07-13] MEDS: Ursodiol CAP* 300 MG PO SCH ×2 (08:03→22:10)
[2019-07-13] MEDS: Vitamin THERAPEUTIC TAB PO SCH (08:03)
[2019-07-13] MEDS: Docusate CAP* 100 MG PO SCH ×2 (08:03→22:11)
[2019-07-13] MEDS: Lisinopril TAB* 10 MG PO SCH (08:03)
[2019-07-13] MEDS: Magnesium Hydroxide LIQ* 30 ML UDC PO SCH ×2 (08:06→22:12)
[2019-07-13] MEDS: Apixaban* 2.5 MG TAB PO SCH ×3 (08:06→22:11)
--- NOTE | 2019-07-13 13:09 | PN ---
Progress Note - Progress Note Date of Service: 07/13/19 SOAP: Subjective: Pt seen sitting comfortably in chair. No complaint of pain. No issues otherwise. Denies CP, SOB, F/C. Vital Signs: Temp Pulse Resp BP Pulse Ox 98.4 F 93 17 98/56 100 07/13/19 11:32 07/13/19 11:32 07/13/19 11:32 07/13/19 12:36 07/13/19 11:32 Laboratory Last Values Hgb 10.2 g/dL (12.0-16.0) L 07/13/19 05:29 Hct 31 % (35-47) L 07/13/19 05:29 Plt Count 181 10^3/uL (150-450) 07/13/19 05:29 MPV 8.9 fL (7.4-10.4) 07/13/19 05:29 Sodium 134 mmol/L (135-145) L 07/13/19 05:29 Potassium 4.9 mmol/L (3.5-5.0) 07/13/19 05:29 Chloride 105 mmol/L (101-111) 07/13/19 05:29 Carbon Dioxide 27 mmol/L (22-32) 07/13/19 05:29 Anion Gap 2 mmol/L (2-11) 07/13/19 05:29 BUN 16 mg/dL (6-24) 07/13/19 05:29 Creatinine 0.85 mg/dL (0.51-0.95) 07/13/19 05:29 Est GFR ( Amer) 77.7 (>60) 07/13/19 05:29 Est GFR (Non-Af Amer) 64.2 (>60) 07/13/19 05:29 BUN/Creatinine Ratio 18.8 (8-20) 07/13/19 05:29 Glucose 129 mg/dL (70-100) H 07/13/19 05:29 Calcium 8.6 mg/dL (8.6-10.3) 07/13/19 05:29 Urine Color Yellow 07/12/19 23:10 Urine Appearance Cloudy 07/12/19 23:10 Urine pH 5.0 (5-9) 07/12/19 23:10 Ur Specific [place] 1.016 (1.010-1.030) 07/12/19 23:10 Urine Protein Negative (Negative) 07/12/19 23:10 Urine Ketones Negative (Negative) 07/12/19 23:10 Urine Blood Negative (Negative) 07/12/19 23:10 Urine Nitrate Negative (Negative) 07/12/19 23:10 Urine Bilirubin Negative (Negative) 07/12/19 23:10 Urine Urobilinogen Negative (Negative) 07/12/19 23:10 Ur Leukocyte Esterase 3+ (Negative) A 07/12/19 23:10 Urine WBC (Auto) 3+(>20/hpf) (Absent) A 07/12/19 23:10 Urine RBC (Auto) Absent (Absent) 07/12/19 23:10 Urine Bacteria Absent (Absent) 07/12/19 23:10 Urine Glucose Negative (Negative) 07/12/19 23:10 Urine Ascorbic Acid * (Negative) A 07/12/19 23:10 Objective: A&O x3, NAD Dressing C/D/I, Calves soft and nontender, No edema, NVI distally. Assessment: 79 yo female s/p left hip conversion cannulated screws with failure to left KATIA POD#1 Plan: OOB, PT/OT WBAT Pain control DVT prophylaxis - Eliquis 2.5mg bid D/c planning - Pt wants PMRU
[2019-07-13] MEDS: Atorvastatin* 10 MG TAB PO SCH (22:11)
[2019-07-14] MEDS: oxyCODONE TAB* 5 MG TAB PO PRN (00:33)
[2019-07-14 05:53] LABS: Hematocrit 28 % (35-47); Hemoglobin 9.5 g/dL (12.0-16.0); Mean Platelet Volume 8.9 fL (7.4-10.4); Platelet Count 164 10^3/uL (150-450)
[2019-07-14] MEDS: Acetaminophen TAB* 325 MG PO SCH ×4 (07:04→21:42)
[2019-07-14] MEDS: Ursodiol CAP* 300 MG PO SCH ×2 (09:16→20:54)
[2019-07-14] MEDS: levETIRAcetam TAB* 500 MG PO SCH ×2 (09:16→20:55)
[2019-07-14] MEDS: Apixaban* 2.5 MG TAB PO SCH ×2 (09:17→20:55)
[2019-07-14] MEDS: Vitamin THERAPEUTIC TAB PO SCH (09:17)
[2019-07-14] MEDS: Docusate CAP* 100 MG PO SCH ×2 (09:17→20:54)
[2019-07-14] MEDS: Magnesium Hydroxide LIQ* 30 ML UDC PO SCH ×2 (09:18→20:54)
--- NOTE | 2019-07-14 10:25 | PN ---
Progress Note - Progress Note Date of Service: 07/14/19 - POD 2 Note: POD 2: s/p Left hip cannulated screw removal with conversion to left total hip replacement. Patient resting comfortably in joint chair breathing easily, denying CP or dizziness. She feels tired today but has been up with PT and walking. Her pain is well controlled. She actively DF/PF bilateral ankles with intact sensation and 2+ DP pulses. Dressing changed today. Incision C/D/I and benign in appearance. Continue PT and pain management. Plan for d/c Tuesday. Appreciate medical management and we will follow.
[2019-07-14] MEDS: Lisinopril TAB* 10 MG PO SCH (11:51)
--- NOTE | 2019-07-14 15:02 | CONS ---
HOSPITAL MEDICINE CONSULTATION REPORT: DATE OF CONSULT: 07/14/19 ATTENDING PHYSICIAN: Dr. Boogie. CONSULTING PHYSICIAN: Dr. Hernadez (dictation provided by Savanah Stock NP). REASON FOR CONSULT: Medical co-management in a patient admitted for a left conversion of hip cannulated screw with failure to left total hip arthroplasty. HISTORY OF PRESENT ILLNESS/HOSPITAL COURSE: Ms. Leung is an 79-year-old female with a past medical history of hypertension and seizure disorder who presented to the hospital on 07/12/19 with plan for a revision of a cannulated screw placement to the left hip into a total hip arthroplasty. I refer you to the documentation from Dr. Boogie and her team for complete details. In brief, the patient had been seen preoperatively by her primary care physician, Dr. Nuñez , and had no contraindications to surgery and an RCRI score of 0. The patient went to the OR on 07/12/19 and was reported to tolerate it well. Ms. Leung states that prior to coming into surgery she had been feeling well outpatient other than soreness in her hip. She was aware that she had a positive urine culture on 07/11/19 (for Klebsiella pneumoniae with greater than 100,000). Per her report, she was started on antibiotics, but I cannot find a clear confirmation of that and she is not on antibiotics at the moment. At this point, she says that she has no dysuria, no frequency, and had none prior either. She has had intermittent postoperative hypotension. On arrival, her blood pressure was running 100s to about 140s, and during the day yesterday, her blood pressure was running 80s to 90s. It was doing better this morning, but is now back down to 90/55. She is asymptomatic, sitting up in the chair. Her heart rate has increased as well, was originally in the 60s to 80s and now is up into 100s and at least overnight up to the 120s. She is now in the 90s. Her labs show a mild anemia with a hemoglobin of 9.5. I note that she was hyperglycemic with a blood sugar of 120 at 5 a.m. No known history of diabetes. PAST MEDICAL HISTORY: 1. Hypertension. 2. Seizure disorder. MEDICATIONS: Outpatient are: 1. Lisinopril 10 mg p.o. q.a.m. 2. Acetaminophen 650 mg p.o. q.4 hours p.r.n. 3. Levetiracetam 1000 mg p.o. b.i.d. 4. Ursodiol 300 mg p.o. b.i.d. 5. Simvastatin 20 mg p.o. at bedtime. 6. Multivitamin with iron and folic acid 1 tab p.o. q.a.m. ALLERGIES: No known drug allergies. FAMILY HISTORY: Reviewed and noncontributory. SOCIAL HISTORY: No report of alcohol, tobacco, or drug use. REVIEW OF SYSTEMS: A 14-point review of systems was completed with Ms. Leung and all those not mentioned above were negative. PHYSICAL EXAM: Vital Signs: Temperature 98.3, pulse rate 98, respiratory rate 16, O2 saturation 98% on room air, blood pressure 90/55. General: Ms. Leung is sitting in the chair. She is in no acute distress. Neuro: She is alert. She is oriented x3. She moves all extremities equally. There is no facial asymmetry or focal weakness. Extraocular movements are intact. Heart: S1, S2. No murmur, rub, or gallop and regular. Lungs are clear to auscultation bilaterally with no accessory muscle use and good aeration. The abdomen is soft , nontender with bowel sounds positive x4. Extremities: No cyanosis or edema. Skin is intact. LABORATORY DATA: Sodium 134, potassium 4.9, chloride 105, serum bicarbonate 27 , BUN 16, creatinine 0.85, glucose 129. Hemoglobin 9.5, hematocrit 28, platelets 164. Urine shows 3+ leukocyte esterase, 3+ wbc's, and no bacteria. Microbiology shows positive Klebsiella pneumoniae on 07/11/19 which was essentially pansensitive and then repeat on 07/12/19 again showed Klebsiella, but now was only moderate. ASSESSMENT AND PLAN: Ms. Leung is an 79-year-old female with a past medical history seizure disorder and hypertension who presented to the hospital on 07/12 for conversion of a cannulated screw to her left hip into a total hip arthroplasty with Dr. Boogie. Hospital Medicine has been called regarding medical co-management of hypotension. Our recommendations are as follows: 1. Hypotension. The patient's blood pressure has fallen in the postoperative period. When her blood pressure recovered this morning, her IV fluids were stopped, but I think that it would be prudent to resume those now at least through the night, given that she is both hypotensive and mildly tachycardic. I will recheck labs in the a.m. for another opportunity to ascertain fluid status. Per the report, she was very dehydrated on arrival and I suspect that is what is driving these vital sign abnormalities. I note that there was also report of weight loss outpatient and I do recommend that she continue to follow up with her primary care physician regarding her oral intake and weight loss. 2. Seizure disorder. Continue Keppra. 3. DVT prophylaxis: Continue apixaban per Ortho. 4. A.m. hyperglycemia. Plan to check hemoglobin A1c. 5. Urinary tract infection. I cannot find any evidence that this urinary tract infection was treated. Given that the patient has just gone for surgery, I will treat with a 3-day dose of Bactrim. 6. Code status is DNR. 7. Disposition: Per Ortho. TIME SPENT: Approximately 60 minutes was spent on the consultation of this patient, more than half the time spent with the patient at the bedside reviewing the events leading up to this hospitalization and thus far during this hospitalization, performing the physical examination, and reviewing my plan of care. SAVANAH STOCK NP [id number]/CPS #: [id number] [place]
[2019-07-14] MEDS ORDERED: Bisacodyl SUPP* 10 MG SUPP PR PRN (17:28)
[2019-07-14] MEDS: Sulfamethox/Trimethoprim DS 800/160* TAB PO SCH (20:54)
[2019-07-14] MEDS: Atorvastatin* 10 MG TAB PO SCH (20:55)
[2019-07-15] MEDS: Acetaminophen TAB* 325 MG PO SCH ×4 (05:32→20:17)
[2019-07-15 07:57] LABS: Hematocrit 30 % (35-47); Hemoglobin 9.8 g/dL (12.0-16.0); Platelet Count 192 10^3/uL (150-450)
[2019-07-15 08:14] LABS: BUN/Creatinine Ratio 18.1 (8-20); Calcium 8.7 mg/dL (8.6-10.3); EGFR African American 94.1 (>60); EGFR Non-African American 77.7 (>60)
[2019-07-15] MEDS: Apixaban* 2.5 MG TAB PO SCH ×2 (09:16→20:12)
[2019-07-15] MEDS: Docusate CAP* 100 MG PO SCH ×2 (09:16→20:13)
[2019-07-15] MEDS: Magnesium Hydroxide LIQ* 30 ML UDC PO SCH ×2 (09:17→20:40)
[2019-07-15] MEDS: levETIRAcetam TAB* 500 MG PO SCH ×2 (09:17→20:12)
[2019-07-15] MEDS: Vitamin THERAPEUTIC TAB PO SCH (09:18)
[2019-07-15] MEDS: Sulfamethox/Trimethoprim DS 800/160* TAB PO SCH ×2 (09:18→20:13)
[2019-07-15] MEDS: Ursodiol CAP* 300 MG PO SCH ×2 (09:24→20:13)
--- NOTE | 2019-07-15 10:06 | PN ---
Progress Note - Progress Note Date of Service: 07/15/19 Note: POD #3: s/p Left hip cannulated screw removal with conversion to left total hip replacement. Patient resting comfortably in joint chair breathing easily, denying CP or dizziness. She feels less tired today and has been up with PT and walking more. Her pain is well controlled. She actively DF/PF bilateral ankles with intact sensation and 2+ DP pulses. Dressing C/D/I. Continue PT and pain management. Plan for d/c Tuesday to rehab. Appreciate medical management and we will follow.
[2019-07-15] MEDS: Atorvastatin* 10 MG TAB PO SCH (20:12)
[2019-07-16 04:37] LABS: Hematocrit 26 % (35-47); Hemoglobin 8.9 g/dL (12.0-16.0); Mean Platelet Volume 8.8 fL (7.4-10.4); Platelet Count 171 10^3/uL (150-450)
[2019-07-16] MEDS: Acetaminophen TAB* 325 MG PO SCH ×3 (05:53→22:28)
[2019-07-16] MEDS: Vitamin THERAPEUTIC TAB PO SCH (08:23)
[2019-07-16] MEDS: Sulfamethox/Trimethoprim DS 800/160* TAB PO SCH ×2 (08:23→22:29)
[2019-07-16] MEDS: Ursodiol CAP* 300 MG PO SCH ×2 (08:23→22:28)
[2019-07-16] MEDS: levETIRAcetam TAB* 500 MG PO SCH ×2 (08:23→22:29)
[2019-07-16] MEDS: Apixaban* 2.5 MG TAB PO SCH ×2 (08:23→22:28)
[2019-07-16] MEDS: Docusate CAP* 100 MG PO SCH ×2 (08:23→22:29)
[2019-07-16] MEDS: Magnesium Hydroxide LIQ* 30 ML UDC PO SCH ×2 (08:25→22:29)
--- NOTE | 2019-07-16 13:24 | PN ---
Progress Note - Progress Note Date of Service: 07/16/19 SOAP: Subjective: POD #4 left hip removal of hardware with KATIA. Doing very well, minimal pain. Has been able to participate well with PT. Denies CP/SOB, f/c, n/v or diarrhea. Objective: Vital Signs: Temp Pulse Resp BP Pulse Ox 98.2 F 113 16 113/69 97 07/16/19 07:39 07/16/19 07:39 07/16/19 08:32 07/16/19 07:39 07/16/19 07:39 Gen: A&Ox3, NAD at rest sitting in chair Left hip: Incision C/D/I, minimal ecchymosis, no erythema. +f/e at ankles and MTPs, N/V intact Labs: Laboratory Results - last 24 hr 07/15/19 07/16/19 07:44 04:22 Hgb 8.9 L Hct 26 L Plt Count 171 MPV 8.8 Hemoglobin A1c 5.2 Assessment: POD #4 left hip removal of harware with KATIA Plan: Awaiting rehab placement Cont PT/OT, posterior hip precautions Cont Eliquis for DVT ppx
[2019-07-16] MEDS: Atorvastatin* 10 MG TAB PO SCH (22:28)
[2019-07-17] MEDS: Acetaminophen TAB* 325 MG PO SCH (06:19)
[2019-07-17 06:52] LABS: Hematocrit 27 % (35-47); Platelet Count 198 10^3/uL (150-450)
--- NOTE | 2019-07-17 07:20 | DS ---
Orthopedic Discharge Summary - Discharge Summary Date of Admission:07/12/19 Date of Discharge: 07/17/19 Date of Surgery: 07/12/19 Attending Orthopedic Provider: Dr Boogie Pre-operative Diagnosis: Left hip pain s/p cannulated screws Operative Procedure: left hip removal of hardware, left total hip replacement Disposition of Patient: [facility] Condition of Patient: stable History: AKI MARTINEZ is a 79 year old F sp cannulated screws and having left hip pain. Patient has failed conservative management and has elected to undergo a removal of hardware and left total hip replacement Hospital Course: AKI was admitted to [facility] on 07/12/19. Patient underwent a removal of hardware and left total hip replacement without complication followed by a brief recovery in PACU and transfer to the Short Stay Surgical Unit in stable condition. Our hospitalist service, physical therapy and occupational therapy also participated in this patients care. Post- op day 1: patient was alert and in no acute distress. Dressing was clean, dry and intact. Operative extremity dorsiflexion and plantarflexion intact, sensation intact to light touch distally, DP2+. Post-op day two: dressing was changed, incision was clean, dry and intact. She was treated for a UTI with 3 days of bactrim from 07/14-07/17. hip exam unchanged throughout the remainder of her stay. Patient was deemed to be medically and orthopedically stable for discharge to [facility] 07/17/19. Home Medications Medication Instructions Recorded Confirmed Type Lisinopril TAB* [Prinivil TAB 10 10 mg PO QAM 02/09/18 07/11/19 History MG*] Multivitamin/Iron/Folic Acid 1 each PO QAM 02/09/18 07/11/19 History [Centrum Adults Tablet] Simvastatin TAB(NF) [Zocor 10 MG 20 mg PO BEDTIME 02/09/18 07/11/19 History (NF)] levETIRAcetam [Keppra] 1,000 mg PO BID 02/09/18 07/11/19 History Acetaminophen TAB* [Tylenol TAB*] 650 mg PO Q4H PRN tab 04/24/19 07/11/19 Rx Ursodiol CAP* [Actigall CAP 300 300 mg PO BID #60 cap 05/19/19 07/11/19 Rx MG*] Acetaminophen TAB* [Tylenol TAB*] 975 mg PO Q8HR tab 07/16/19 Rx Apixaban* [Eliquis*] 2.5 mg PO BID tab 07/16/19 Rx Cyclobenzaprine TAB* [Flexeril 10 10 mg PO Q6H PRN tab 07/16/19 Rx MG TAB*] Docusate CAP* [Colace Cap*] 100 mg PO BID cap 07/16/19 Rx Sulfamethox/Trimethoprim DS* 1 tab PO BID tab 07/16/19 Rx [Bactrim DS 800/160 TAB*] oxyCODONE/Acetamin 5/325 MG* 1 tab PO Q4H PRN tab 07/16/19 Rx [Percocet 5/325 TAB*] DISCHARGE INSTRUCTIONS: Weight Bearing as tolerated Wound Care: OK to shower on post-op day 3, no bathing/ swimming/ submerging wound. Use gentle soap, pat dry. Cover with gauze and tape. Call Orthopedic office for increased drainage, redness, increased pain, or fever. Go to ER with shortness of breath or chest pain. Diet: Regular diet, increase fluids and fiber to prevent constipation. Continue to use stool softeners, call office if no bowel motion within 48 hours. Hip replacements: Continue Hip Precautions- do not cross legs or bend greater than 90 degrees/ squat - Continue physical therapy and occupational therapy exercises as shown. DVT Prophylaxis: - Eliquis- 2.5mg every 12 hours x 1 month - Pain control with: Percocet 5/325 mg 1 tab by mouth every 4-6 hours as needed for pain. Maximum of 6 tabs per day. hold for sedation. wean off as soon as pain allows. Please note that percocet contains tylenol (acetaminophen). Maximum daily dose of tylenol is 4000 mg from all sources. - Antibiotics required prior to any dental work. - bactrim x 6 total doses for UTI 07/14-07/17 FOLLOW UP: Follow up with Dr. Boogie Within 10-14 days, call for appointment Please call our office with any questions or concerns ([phone])
--- NOTE | 2019-07-17 07:23 | PN ---
Progress Note - Progress Note Date of Service: 07/17/19 SOAP: Subjective: Pt. is doing well, moderate hip pain. Objective: Vital Signs: Temp Pulse Resp BP Pulse Ox 98.1 F 89 17 121/66 97 07/17/19 04:06 07/17/19 04:06 07/17/19 04:06 07/17/19 04:06 07/17/19 04:06 Laboratory Results - last 24 hr 07/17/19 06:13 Hgb 9.0 L Hct 27 L Plt Count 198 MPV 9.0 LLE - dressing c/d/i. nvi. Assessment: 79 yo F pod 5 s/p conversion of failed cannulated screws to LTHA Plan: doing well and ready for d/c today plan to SNF today wbat with posterior hip precautions pt eliquis bid
--- NOTE | 2019-07-17 07:33 | PN ---
Progress Note - Progress Note Date of Service: 07/17/19 SOAP: Subjective: []Pt seen OOB in chair, She is comfortable without complaints. Denies CP, SOB, dizziness, nausea. Hip pain is well controlled. Objective: []Gen: Appears well, NAD LLE: left hip dressing changed, incision CDI no erythema, thigh is soft, DF/PF intact, DP2+, sensation intact to light touch distally Calves supple and nontender without erythema or edema Assessment: []POD #5 left hip removal of harware with KATIA Plan: DC to [facility] Cont PT/OT, posterior hip precautions Cont Eliquis 2.5 mg po bid x 30 days post op for DVT ppx Finish bactrim today for UTI Vital Signs Temp 98.1 F 07/17/19 04:06 Pulse 89 07/17/19 04:06 Resp 17 07/17/19 04:06 BP 121/66 07/17/19 04:06 Pulse Ox 97 07/17/19 04:06 Intake & Output 07/16/19 07/17/19 07/17/19 18:59 06:59 18:59 Intake Total 720 1040 Output Total 150 0 Balance 570 1040 Intake: Oral 720 1040 Output: Urine 150 0 Other: Estimated Void Medium # Bowel Movements 1 Estimated Stool Amount Medium # Voids 2 Laboratory Last Values Hgb 9.0 g/dL (12.0-16.0) L 07/17/19 06:13 Hct 27 % (35-47) L 07/17/19 06:13 Plt Count 198 10^3/uL (150-450) 07/17/19 06:13 MPV 9.0 fL (7.4-10.4) 07/17/19 06:13 Sodium 133 mmol/L (135-145) L 07/15/19 07:44 Potassium 4.0 mmol/L (3.5-5.0) 07/15/19 07:44 Chloride 102 mmol/L (101-111) 07/15/19 07:44 Carbon Dioxide 28 mmol/L (22-32) 07/15/19 07:44 Anion Gap 3 mmol/L (2-11) 07/15/19 07:44 BUN 13 mg/dL (6-24) 07/15/19 07:44 Creatinine 0.72 mg/dL (0.51-0.95) 07/15/19 07:44 Est GFR ( Amer) 94.1 (>60) 07/15/19 07:44 Est GFR (Non-Af Amer) 77.7 (>60) 07/15/19 07:44 BUN/Creatinine Ratio 18.1 (8-20) 07/15/19 07:44 Glucose 105 mg/dL (70-100) H 07/15/19 07:44 Hemoglobin A1c 5.2 % (4.0-5.6) 07/15/19 07:44 Calcium 8.7 mg/dL (8.6-10.3) 07/15/19 07:44 Urine Color Yellow 07/12/19 23:10 Urine Appearance Cloudy 07/12/19 23:10 Urine pH 5.0 (5-9) 07/12/19 23:10 Ur Specific Wells 1.016 (1.010-1.030) 07/12/19 23:10 Urine Protein Negative (Negative) 07/12/19 23:10 Urine Ketones Negative (Negative) 07/12/19 23:10 Urine Blood Negative (Negative) 07/12/19 23:10 Urine Nitrate Negative (Negative) 07/12/19 23:10 Urine Bilirubin Negative (Negative) 07/12/19 23:10 Urine Urobilinogen Negative (Negative) 07/12/19 23:10 Ur Leukocyte Esterase 3+ (Negative) A 07/12/19 23:10 Urine WBC (Auto) 3+(>20/hpf) (Absent) A 07/12/19 23:10 Urine RBC (Auto) Absent (Absent) 07/12/19 23:10 Urine Bacteria Absent (Absent) 07/12/19 23:10 Urine Glucose Negative (Negative) 07/12/19 23:10 Urine Ascorbic Acid * (Negative) A 07/12/19 23:10
[2019-07-17 07:45] VITALS: BP 119/57
[2019-07-17] MEDS: Magnesium Hydroxide LIQ* 30 ML UDC PO SCH (08:08)
[2019-07-17] MEDS: Ursodiol CAP* 300 MG PO SCH (08:28)
[2019-07-17] MEDS: Sulfamethox/Trimethoprim DS 800/160* TAB PO SCH (08:28)
[2019-07-17] MEDS: levETIRAcetam TAB* 500 MG PO SCH (08:28)
[2019-07-17] MEDS: Apixaban* 2.5 MG TAB PO SCH (08:28)
[2019-07-17] MEDS: Vitamin THERAPEUTIC TAB PO SCH (08:28)
[2019-07-17] MEDS: Docusate CAP* 100 MG PO SCH (08:29)
== END 2019-07-17 11:40 | DRG 470 ==
LOC: AA 13:02 → SSU 21:27
PROVIDERS: ADMIT Orthopaedic Surgery Adult Reconstructive Orthopaedic Surgery; ATTEND Orthopaedic Surgery Adult Reconstructive Orthopaedic Surgery
PROC: 0SPB04Z Removal of Internal Fixation Device from Left Hip Joint, Open Approach (ICD-10-PCS; 2019-07-12)
PROC: 0SRB04A Replacement of Left Hip Joint with Ceramic on Polyethylene Synthetic Substitute, Uncemented, Open Approach (ICD-10-PCS; principal; 2019-07-12 15:45)
DX: T84.115A Breakdown (mechanical) of internal fixation device of left femur, initial encounter (principal); M87.352 Other secondary osteonecrosis, left femur; S72.052K Unspecified fracture of head of left femur, subsequent encounter for closed fracture with nonunion; E86.0 Dehydration; M16.12 Unilateral primary osteoarthritis, left hip; I10 Essential (primary) hypertension; M85.862 Other specified disorders of bone density and structure, left lower leg; E78.00 Pure hypercholesterolemia, unspecified; X58.XXXA Exposure to other specified factors, initial encounter; G40.909 Epilepsy, unspecified, not intractable, without status epilepticus; Z79.891 Long term (current) use of opiate analgesic; Z79.899 Other long term (current) drug therapy; W18.30XD Fall on same level, unspecified, subsequent encounter
CPT/HCPCS: 36415; 80048; 81003; 81015; 83036; 85014; 85018; 85049; 87070; 87073; 87077; 87086; 87102; 87186; 87205; 88300; 88304; 88311; A9270-GY; C1713; C1776; G8978-GP-CJ; G8979-GP-CI; G8987-GO-CI; G8988-GO-CI; G8989-GO-CI; J0690; J1100; J2250; J2704; J3010; J3490